=== PATIENT | male | born 1940 | race Caucasian/White ===

== ENCOUNTER 2016-06-09 18:59 | Inpatient (IN) | payer OTHER ==
[2016-06-09] MEDS ORDERED: PROPOFOL/EMULSION 500 MG/50 ML BOTTLE IV ONE (19:02)
[2016-06-09] MEDS ORDERED: NS 1,000 ML IV ONE ×2 (19:05→19:16)
--- NOTE | 2016-06-09 19:11 | EDPHY ---
H & P Stated Complaint: Cardiac arrest Time Seen by Provider: 06/09/16 19:05 HPI/ROS: CHIEF COMPLAINT: Cardiac arrest HISTORY OF PRESENT ILLNESS: Patient is brought in emergently by paramedics after a witnessed cardiac arrest. The patient is unable to provide history as he is currently intubated. The patient reportedly was at home with a home healthcare nurse when he was noted to have a witnessed arrest. The patient received immediate CPR and paramedics were summoned. They arrived after approximately 10 minutes of CPR. The patient was found to be in ventricular fibrillation. He was cardioverted and given epinephrine. He returned to a normal spontaneous rhythm with normal blood pressure following intervention. The patient was intubated by paramedics. Patient may have taken a oxycodone tablet for pain prior to this event. The patient did receive Narcan. REVIEW OF SYSTEMS: A comprehensive 10 point review of systems is otherwise negative aside from elements mentioned in the history of present illness. - Personal History Current Tetanus/Diphtheria Vaccine: Unsure Current Tetanus Diphtheria and Acellular Pertussis (TDAP): Unsure - Social History Smoking Status: Unknown if ever smoked Constitutional: Initial Vital Signs Heart Rate 46 L 06/09/16 19:01 Respiratory Rate 16 06/09/16 19:01 Blood Pressure 79/54 L 06/09/16 19:01 O2 Sat (%) 94 06/09/16 19:01 O2 Delivery Mode Bag Valve Mask Allergies/Adverse Reactions: gluten [Gluten] Allergy (Verified 09/02/10 15:17) Other-Enter Comments No Allergies [NKDA] Allergy (Verified 09/02/10 15:17) Medical Decision Making - Diagnostics Imaging Results: Imaging Impressions Chest X-Ray 06/09/16 19:02 Impression: 1. Satisfactory position of the endotracheal tube. 2. Suspect underlying fibrosis. 3. Postoperative changes of spinal instrumentation. Procedures: Procedure: Limited transthoracic echocardiogram. A limited transthoracic echocardiogram was performed and interpreted by myself for cardiac arrest. Limited transthoracic echocardiogram: The pericardium was visualized and found to be negative for pericardial fluid. Cardiac activity was present, no significantly dilated RV. The study was negative for pericardial effusion. The exam was performed by myself. ED Course/Re-evaluation: The patient arrives to the ED after a reported witnessed arrest. Initial rhythm was VFib which has responded to cardioversion epinephrine. The patient is currently in a sinus rhythm. The patient is intubated. A stat x-ray demonstrates good placement of the ET tube and findings consistent with congestive heart failure. The patient is breathing spontaneously. The patient has no purposeful movement. The patient's blood sugar was noted to be less than 20. He received an amp of D50. The patient was placed on a cafeteria monitor and defibrillator pads have been applied to the chest wall. Consultation was made with Dr. Hari Kay from Cardiology. The patient will be taken to the cardiac catheterization lab and admitted to the intensive care unit. The patient's has arrived at 7:30 p.m.. She reports he has recently undergone a spinal surgery approximately 1 month ago. He has been recovering uneventfully at home. The patient was up and ambulatory today. The patient reportedly was in bed sleeping and tried to get up prior to his arrest. The patient has no history of coronary artery disease. The patient had been taking some oxycodone over the past couple days for increasing back pain. The patient does not have a history of diabetes. Repeat FSBG = 96. Bedside cardiac echo shows no effusion, no dilated RV. The patient will be taken to the cardiac catheterization lab for further evaluation. Consultation is also made with Dr. Ansari from the hospitalist service. The patient will then be admitted to the intensive care unit. Critical Care Time: Critical care time exclusive of procedures and exclusive of the PA's time was 48 minutes, performed by myself, Aaron Hood MD. Patient presents to the ED a witnessed cardiac arrest. The patient will be taken immediately to the cardiac catheterization lab. The patient did undergo a comprehensive evaluation in the emergency department. He will be assessed by the hospitalist and threading machine tender following his angiogram. - Data Points Laboratory Results: 06/09/16 06/09/16 06/09/16 19:39 19:38 19:06 WBC RBC Hgb POC Hgb 9.5 gm/dL L gm/dL (14.5-17.3) Hct POC Hct 28 % L % (42.8-50.6) MCV MCH MCHC RDW Plt Count MPV Neut % (Auto) Lymph % (Auto) [place] % (Auto) Eos % (Auto) Baso % (Auto) Nucleat RBC Rel Count Absolute Neuts (auto) Absolute Lymphs (auto) Absolute Monos (auto) Absolute Eos (auto) Absolute Basos (auto) Absolute Nucleated RBC Immature Gran % Immature Gran # Puncture Site RIGHT RADIAL Patient Temperature 37.0 DEGREES DEGREES pCO2 30 mmHg L mmHg (34-38) pO2 213 mmHg H mmHg (65-75) Total CO2 21 mEq/L L mEq/L (23-27) ABG pH 7.43 (7.35-7.45) ABG PO2/FiO2 Ratio 2130 RATIO RATIO ABG O2 Saturation 99 % H % (92-95) ABG Base Excess -3.4 mEq/L L mEq/L (-2.5-2.5) O2 Concentration % 10 % % (0-100) Actual Respiration Rate 22 Set Respiration Rate 20 SIMV YES Tidal Volume 420 PEEP 5 Peak Inspir Pressure 16 Pressure Support 17 POC Sodium 143 mEq/L mEq/L (134-144) Sodium Pending POC Potassium 4.5 mEq/L mEq/L (3.3-5.0) Potassium Pending POC Chloride 103 mEq/L mEq/L (96-108) Chloride Pending Carbon Dioxide Pending Bicarbonate 20 mEq/L L mEq/L (22-26) Anion Gap Pending POC BUN 38 mg/dL H mg/dL (7-23) BUN Pending Creatinine Pending POC Creatinine 1.1 mg/dL mg/dL (0.8-1.5) Estimated GFR Pending Glucose Pending POC Glucose 96 mg/dL mg/dL (70-100) Calcium Pending Troponin I Pending 06/09/16 06/09/16 19:06 19:03 WBC Pending RBC Pending Hgb Pending POC Hgb 11.6 gm/dL L gm/dL (14.5-17.3) Hct Pending POC Hct 34 % L % (42.8-50.6) MCV Pending MCH Pending MCHC Pending RDW Pending Plt Count Pending MPV Pending Neut % (Auto) Pending Lymph % (Auto) Pending [place] % (Auto) Pending Eos % (Auto) Pending Baso % (Auto) Pending Nucleat RBC Rel Count Pending Absolute Neuts (auto) Pending Absolute Lymphs (auto) Pending Absolute Monos (auto) Pending Absolute Eos (auto) Pending Absolute Basos (auto) Pending Absolute Nucleated RBC Pending Immature Gran % Pending Immature Gran # Pending Puncture Site Patient Temperature pCO2 pO2 Total CO2 ABG pH ABG PO2/FiO2 Ratio ABG O2 Saturation ABG Base Excess O2 Concentration % Actual Respiration Rate Set Respiration Rate SIMV Tidal Volume PEEP Peak Inspir Pressure Pressure Support POC Sodium 141 mEq/L mEq/L (134-144) Sodium POC Potassium 4.8 mEq/L mEq/L (3.3-5.0) Potassium POC Chloride 103 mEq/L mEq/L (96-108) Chloride Carbon Dioxide Bicarbonate Anion Gap POC BUN 48 mg/dL H mg/dL (7-23) BUN Creatinine POC Creatinine 1.1 mg/dL mg/dL (0.8-1.5) Estimated GFR Glucose POC Glucose < 20 mg/dL L* mg/dL (70-100) Calcium Troponin I Medications Given: Discontinued Medications Dextrose (Dextrose 50% Syringe) 25 gm IVP EDNOW ONE Stop: 06/09/16 19:14 Last Admin: 06/09/16 19:15 Dose: 25 gm Sodium Chloride (Ns) 1,000 mls @ 0 mls/hr IV ONCE ONE PRN Reason: Wide Open Stop: 06/09/16 19:06 Last Admin: 06/09/16 19:15 Dose: 1,000 mls Sodium Chloride (Ns) 1,000 mls @ 0 mls/hr IV ONCE ONE PRN Reason: Wide Open Stop: 06/09/16 19:17 Last Admin: 06/09/16 19:16 Dose: 1,000 mls Propofol (Diprivan 10 Mg/Ml (Premix)) 50 mls @ 0 mls/hr IV EDNOW ONE; As Directed PRN Reason: Protocol Stop: 06/09/16 19:35 Last Admin: 06/09/16 19:35 Dose: 50 mls Point of Care Test Results: 06/09/16 06/09/16 19:03 19:38 POC Sodium 141 143 POC Potassium 4.8 4.5 POC Chloride 103 103 POC BUN 48 H 38 H POC Creatinine 1.1 1.1 POC Glucose < 20 L* 96 Departure - Departure Disposition: [facility] Inpatient Acute Clinical Impression: Cardiac arrest Condition: Critical Referrals: NONE *PRIMARY CARE P,. [Primary Care Provider] - As per Instructions
[2016-06-09] MEDS ORDERED: D50W 25 GM/50 ML SYR IVP ONE ×3 (19:12→22:08)
--- NOTE | 2016-06-09 19:12 | CPEKG ---
Heart Rate: 46 RR Interval: 1304 P-R Interval: 168 QRSD Interval: 104 QT Interval: 472 QTC Interval: 413 P Marion: 0 QRS Marion: 94 T Wave Marion: 25 EKG Severity - BORDERLINE ECG - EKG Impression: SINUS BRADYCARDIA EKG Impression: LOW VOLTAGE THROUGHOUT EKG Impression: BORDERLINE R WAVE PROGRESSION, ANTERIOR LEADS Electronically Signed By: Kaushik Flowers 11-Jun-2016 14:34:41
[2016-06-09 19:25] LABS: % IMMATURE GRANULYOCYTES 0.8 % (0.0-1.1); ABSOLUTE IMMATURE GRANULOCYTES 0.06 10^3/uL (0.00-0.10); ADD DIFF? NO; ADD MORPH? NO; ADD SCAN? YES; ATYPICAL LYMPHOCYTE FLAG 0 (0-99); FRAGMENT RBC FLAG 0 (0-99); LIPEMIA HEMOLYSIS FLAG 80 (0-99); MEAN CELL HEMOGLOBIN 29.1 pg (27.9-34.1); MEAN CELL HEMOGLOBIN CONCENTR. 32.4 g/dL (32.4-36.7); MEAN CELL VOLUME 89.9 fL (81.5-99.8); MEAN PLATELET VOLUME 9.7 fL (8.7-11.7); PLATELET CLUMPS FLAG 0 (0-99); PLATELET COUNT 220 10^3/uL (150-400); RED BLOOD CELL COUNT 3.78 10^6/uL (4.40-6.38); RED CELL DISTRIBUTION WIDTH 14.6 % (11.5-15.2)
[2016-06-09 19:34] LABS: LEFT SHIFT FLG 120 (0-99)
[2016-06-09] MEDS ORDERED: PROPOFOL/EMULSION 50 ML IV ONE (19:34)
[2016-06-09 19:38] LABS: ANION GAP 8 mEq/L (8-16); CALCIUM 7.4 mg/dL (8.5-10.4); CARBON DIOXIDE 24 mEq/l (22-31); CHLORIDE 105 mEq/L (97-110); CREATININE 0.9 mg/dL (0.7-1.3); GLOMERULAR FILTRATION RATE > 60; POTASSIUM 4.8 mEq/L (3.5-5.2); SODIUM 137 mEq/L (134-144)
[2016-06-09] MEDS ORDERED: LIDOCAINE 1% 30 ML SDV ONE (19:44)
[2016-06-09] MEDS ORDERED: IOPAMIDOL (ISOVUE-370) 150 ML BTL IV ONE (19:45)
[2016-06-09 19:50] LABS: BASE EXCESS -3.4 mEq/L (-2.5-2.5); BICARBONATE 20 mEq/L (22-26); MEASURED OXYGEN SATURATION 99 % (92-95); O2 CONCENTRATIION 10 % (0-100); P/F RATIO 2130 RATIO; PATIENT RATE 22; PCO2 30 mmHg (34-38); PO2 213 mmHg (65-75); TCO2 21 mEq/L (23-27)
[2016-06-09 19:50] LABS: TROPONIN I 0.426 ng/mL (0-0.034)
[2016-06-09 19:51] LABS: PIP 16; PRESSURE SUPPORT 17; SIMV YES
[2016-06-09 19:53] LABS: GLUCOSE < 20 mg/dL (70-100)
[2016-06-09 19:57] LABS: SCAN POSITIVE
[2016-06-09 20:04] LABS: PLATELET ESTIMATE ADEQUATE (ADEQ)
[2016-06-09 20:07] LABS: POLYCHROMASIA 1+
[2016-06-09] MEDS ORDERED: DOPamine/DEXTROSE/250 ML BAG IV ONE (20:12)
[2016-06-09] MEDS ORDERED: ONDANSETRON 4 MG/2 ML VIAL IVP PRN (21:31)
[2016-06-09] MEDS ORDERED: ACETAMINOPHEN 650 MG SUPP PR PRN (21:31)
[2016-06-09] MEDS ORDERED: PROTOCOL MAGNESIUM 1 DOSE IV PRN (21:37)
[2016-06-09] MEDS ORDERED: PROTOCOL CALCIUM 1 DOSE IV PRN (21:37)
[2016-06-09] MEDS ORDERED: PROTOCOL POTASSIUM 1 DOSE MISC PRN (21:37)
[2016-06-09] MEDS ORDERED: PROTOCOL K PHOSPHATE 1 DOSE IV PRN (21:37)
[2016-06-09] MEDS ORDERED: D5W NS 1,000 ML IV SCH (21:45)
[2016-06-09] MEDS ORDERED: PROPOFOL/EMULSION 1,000 MG/100 ML BOTTLE IV ONE (21:53)
[2016-06-09] MEDS ORDERED: NOREPINEPHRINE BITARTRATE 4 MG in D5W 500 ML IV SCH (22:00)
[2016-06-09] MEDS ORDERED: IOPAMIDOL (ISOVUE 370) 100 ML BTL IV ONE (22:04)
[2016-06-09 22:05] LABS: IONIZED CALCIUM 1.02 MMOL/L (1.12-1.30)
[2016-06-09] MEDS: D50W 25 GM/50 ML SYR IVP PRN (22:15)
[2016-06-09 22:18] LABS: INR 2.97 (0.83-1.16); PROTIME(PATIENT) 31.3 SEC (12.0-15.0)
[2016-06-09 22:19] LABS: APTT 38.5 SEC (23.0-38.0)
[2016-06-09] MEDS: NOREPINEPHRINE/NS 500 ML IV SCH (22:20)
[2016-06-09] MEDS: fentaNYL/NACL 100 ML IV SCH (22:20)
[2016-06-09 22:24] LABS: POTASSIUM 4.5 mEq/L (3.5-5.2)
[2016-06-09 22:27] LABS: MAGNESIUM 2.1 mg/dL (1.6-2.3)
--- NOTE | 2016-06-09 22:30 | CPIP ---
[f rep st] INVASIVE CARDIAC PROCEDURE DATE OF PROCEDURE: 06/09/2016 PROCEDURE: 1. Coronary angiography. 2. Left ventriculography. 3. Placement of catheter. INDICATION: Cardiac arrest followed by ventricular fibrillation with return to perfusing rhythm aft er direct current cardioversion and epinephrine. ACCESS: Patient was prepped and draped in sterile fashion. 1% lidocaine was used to anesthetize th e right inguinal region. A 6-Iranian introducer sheath was placed selectively into the right common femoral artery via modified Seldinger technique. CORONARY ANGIOGRAPHY: A 6-Iranian JL4 was advanced to left main coronary artery and images obtained. The left main coronary artery bifurcated into an LAD and circumflex coronary arteries. The left m ain coronary artery had a proximal 10% to 20% stenosis present. The left anterior descending esparza ry artery gave rise to 3 diagonal branches. The left anterior descending coronary artery had a sing le discrete 20% stenosis in the distal segment. The diagonal branches and the remainder of the left anterior descending coronary artery were free of any significant disease. The circumflex coronary a rtery is a moderate-sized vessel. The circumflex coronary artery is nondominant. The circumflex co ronary artery had an ostial 20% stenosis present. A 6-Iranian JR4 was advanced to the right coronary artery and images obtained. The right coronary artery was dominant. The right coronary artery appe ared normal. LEFT VENTRICULOGRAPHY: A 6-Iranian pigtail catheter was advanced in the left ventricle and images ob tained. Left ventricle is normal size and had normal systolic function. Estimated ejection fractio n of 60%. The inferior basilar segment appeared to be hypokinetic. COMPLICATIONS: None. CONCLUSIONS: 1. Mild coronary artery disease without flow limitation. 2. Normal left ventricular systolic function with inferobasilar hypokinesis. 3. Status post placement of catheter via right common femoral vein. /[id number]/MODL
[2016-06-09 22:37] LABS: PHENCYCLIDINE URINE BCH < 6 ng/ml (NEGATIVE); PHENCYCLIDINE URINE BCH NEGATIVE (NEGATIVE); TETRAHYDROCANNABINOL URINE < 5 ng/mL (NEGATIVE); TETRAHYDROCANNABINOL URINE NEGATIVE (NEGATIVE)
[2016-06-09] MEDS: D10W 1,000 ML IV SCH (22:37)
--- NOTE | 2016-06-09 22:41 | PDGENHP ---
History and Physical - Chief Complaint cardiac arrest - History of Present Illness 75 yo male with h/o chronic back pain who underwent spine surgery at [facility] one month ago with extensive rodding, presents to ED after an in-home cardiac arrest. Pt is intubated, sedated in the ICU and history is obtained from his , ED physician, Per Diem Interpreter, and chart review. He has historically been very active and healthy though his notes he's always prided himself on being "calorie deficient" and very thin. He underwent spine surgery last month and was recovering uneventfully at home since being discharged from rehab a week ago. He had been taking opiate pain medication, but no more than 1-2 per day according to his . Recently, he complained of increased hip and back pain. No noted fevers/chills, CP or SOB. He was apparently sleeping in bed prior to his arrest. His arrest was witnessed by his home health RN and CPR was started immediately. EMS was called and he received ~10 minutes of CPR prior to their arrival. Upon EMS arrival, he was found to be in V fib and received cardioversion and Epinephrine with ROSC. He did receive a dose of Narcan without notable effect. He was intubated and transported to the ED. Initial labs revealed a BG of <20 and he received 1 amp of D50 with repeat bg of 96. He was taken to the coreroom foundry laborer, where he was found to have non-flow limiting CAD. A HACA catheter was placed and HACA protocol was initiated. He is admitted to the ICU intubated and sedated. History Information - Allergies/Home Medication List Allergies/Adverse Reactions: gluten [Gluten] Allergy (Verified 09/02/10 15:17) Other-Enter Comments No Allergies [NKDA] Allergy (Verified 09/02/10 15:17) I have personally reviewed and updated: family history, medical history, social history, surgical history - Past Medical History Additional medical history: chronic back pain - Surgical History Additional surgical history: ORIF of left greater tuberosity fracture 2010, spine surgery with thomas rods 04/2016 - Family History Additional family history: unobtainable - Social History Smoking Status: Never smoked Alcohol Use: Occasionally 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 . Review of Systems ROS: 10pt was reviewed & negative except for what was stated in HPI & below ( ROS is unobtainable, pt intubated, sedated) Physical Exam Temp Pulse Resp BP Pulse Ox 35.0 C L 58 L 14 98/67 L 96 06/09/16 20:04 06/09/16 20:04 06/09/16 20:04 06/09/16 20:04 06/09/16 20:04 Constitutional: no apparent distress, chronically ill appearing, cachectic Eyes: other (pupils ~3 mm b/l, minimally reactive) Ears, Nose, Mouth, Throat: dry mucous membranes Cardiovascular: regular rate and rhythym Respiratory: no respiratory distress, bronchial breath sounds Gastrointestinal: normoactive bowel sounds, soft, non-tender abdomen Skin: other (cool) Neurologic: other (intermittent decerebrate posturing) Lab Data & Imaging Review 06/09/16 23:30 06/09/16 23:30 WBC 7.29 10^3/uL (3.80-9.50) 06/09/16 19:06 RBC 3.78 10^6/uL (4.40-6.38) L 06/09/16 19:06 Hgb 11.0 g/dL (13.7-17.5) L 06/09/16 19:06 POC Hgb 9.5 gm/dL (14.5-17.3) L 06/09/16 19:38 Hct 34.0 % (40.0-51.0) L 06/09/16 19:06 POC Hct 28 % (42.8-50.6) L 06/09/16 19:38 MCV 89.9 fL (81.5-99.8) 06/09/16 19:06 MCH 29.1 pg (27.9-34.1) 06/09/16 19:06 MCHC 32.4 g/dL (32.4-36.7) 06/09/16 19:06 RDW 14.6 % (11.5-15.2) 06/09/16 19:06 Plt Count 220 10^3/uL (150-400) 06/09/16 19:06 MPV 9.7 fL (8.7-11.7) 06/09/16 19:06 Neut % (Auto) 85.3 % (39.3-74.2) H 06/09/16 19:06 Lymph % (Auto) 7.4 % (15.0-45.0) L 06/09/16 19:06 [place] % (Auto) 6.4 % (4.5-13.0) 06/09/16 19:06 Eos % (Auto) 0.0 % (0.6-7.6) L 06/09/16 19:06 Baso % (Auto) 0.1 % (0.3-1.7) L 06/09/16 19:06 Nucleat RBC Rel Count 0.0 % (0.0-0.2) 06/09/16 19:06 Absolute Neuts (auto) 6.21 10^3/uL (1.70-6.50) 06/09/16 19:06 Absolute Lymphs (auto) 0.54 10^3/uL (1.00-3.00) L 06/09/16 19:06 Absolute Monos (auto) 0.47 10^3/uL (0.30-0.80) 06/09/16 19:06 Absolute Eos (auto) 0.00 10^3/uL (0.03-0.40) L 06/09/16 19:06 Absolute Basos (auto) 0.01 10^3/uL (0.02-0.10) L 06/09/16 19:06 Absolute Nucleated RBC 0.00 10^3/uL (0-0.01) 06/09/16 19:06 Immature Gran % 0.8 % (0.0-1.1) 06/09/16 19:06 Seg Neutrophils % 75 % 06/09/16 19:06 Band Neutrophils % 12 % 06/09/16 19:06 Lymphocytes % 8 % 06/09/16 19:06 Monocytes % 4 % 06/09/16 19:06 Metamyelocytes % 1 % 06/09/16 19:06 Immature Gran # 0.06 10^3/uL (0.00-0.10) 06/09/16 19:06 Absolute Seg Neuts 5.47 10^/uL (1.70-6.50) 06/09/16 19:06 Absolute Band Neuts 0.87 10^3/uL (0.00-0.70) H 06/09/16 19:06 Absolute Lymphocytes 0.58 10^3/uL (1.00-3.00) L 06/09/16 19:06 Absolute Monocytes 0.29 10^3/uL (0.30-0.80) L 06/09/16 19:06 Absolute Metamyelocyte 0.07 10^3/mL (0.00-0.00) H 06/09/16 19:06 Platelet Estimate ADEQUATE (ADEQ) 06/09/16 19:06 Polychromasia 1+ H 06/09/16 19:06 PT 31.3 SEC (12.0-15.0) H 06/09/16 21:52 INR 2.97 (0.83-1.16) H 06/09/16 21:52 APTT 38.5 SEC (23.0-38.0) H 06/09/16 21:52 Puncture Site RIGHT RADIAL 06/09/16 19:39 Patient Temperature 37.0 DEGREES 06/09/16 19:39 pCO2 30 mmHg (34-38) L 06/09/16 19:39 pO2 213 mmHg (65-75) H 06/09/16 19:39 Total CO2 21 mEq/L (23-27) L 06/09/16 19:39 ABG pH 7.43 (7.35-7.45) 06/09/16 19:39 ABG PO2/FiO2 Ratio 2130 RATIO 06/09/16 19:39 ABG O2 Saturation 99 % (92-95) H 06/09/16 19:39 ABG Base Excess -3.4 mEq/L (-2.5-2.5) L 06/09/16 19:39 ABG Lactic Acid 0.8 mmol/L (0.5-1.6) 06/09/16 21:52 O2 Concentration % 10 % (0-100) 06/09/16 19:39 Actual Respiration Rate 22 06/09/16 19:39 Set Respiration Rate 20 06/09/16 19:39 SIMV YES 06/09/16 19:39 Tidal Volume 420 06/09/16 19:39 PEEP 5 06/09/16 19:39 Peak Inspir Pressure 16 06/09/16 19:39 Pressure Support 17 06/09/16 19:39 POC Sodium 143 mEq/L (134-144) 06/09/16 19:38 Sodium 137 mEq/L (134-144) 06/09/16 19:06 POC Potassium 4.5 mEq/L (3.3-5.0) 06/09/16 19:38 Potassium 4.5 mEq/L (3.5-5.2) 06/09/16 21:52 POC Chloride 103 mEq/L (96-108) 06/09/16 19:38 Chloride 105 mEq/L (97-110) 06/09/16 19:06 Carbon Dioxide 24 mEq/l (22-31) 06/09/16 19:06 Bicarbonate 20 mEq/L (22-26) L 06/09/16 19:39 Anion Gap 8 mEq/L (8-16) 06/09/16 19:06 POC BUN 38 mg/dL (7-23) H 06/09/16 19:38 BUN 42 mg/dL (7-23) H 06/09/16 19:06 Creatinine 0.9 mg/dL (0.7-1.3) 06/09/16 19:06 POC Creatinine 1.1 mg/dL (0.8-1.5) 06/09/16 19:38 Estimated GFR > 60 06/09/16 19:06 Glucose < 20 mg/dL (70-100) L* 06/09/16 19:06 POC Glucose 96 mg/dL (70-100) 06/09/16 19:38 Calcium 7.4 mg/dL (8.5-10.4) L 06/09/16 19:06 Ionized Calcium 1.02 MMOL/L (1.12-1.30) L 06/09/16 21:52 Troponin I 0.426 ng/mL (0-0.034) H 06/09/16 19:06 Assessment & Plan Assessment: Cardiac arrest (Acute) - V fib arrest per EMS report. S/P DC cardioversion and Epi, now on HACA protocol. Angiogram showed non-flow limiting CAD, no obvious cardiac source for his arrest. It's possible his critical hypoglycemia was a factor (bg <20) vs respiratory arrest due to accidental opiate overdose (pt taking oxycodone for pain) vs PE vs CVA. CXR showed pulmonary fibrosis and hyperexpanded lung pastor. -Cont mechanical ventilation, follow abg's -Cont HACA protocol, Vecuronium drip started for shivering -Levophed, Dopamine as needed -CT head and chest CTA when stable -Start stress dose steroids -He did not respond to initial narcan dose and will defer further doses now that he is intubated and sedated -close attention to electrolytes -pulmonology consult in am Critical hypoglycemia - etiology unclear. Pt is not a diabetic, not on insulin , but per his , he prides himself on being calorie deficient. Repeat BG upon arrival to ICU from coreroom foundry laborer was again <20. His persistent, severe hypoglycemia is a poor prognostic sign in terms of neurologic function. -Repeat D50 amp x2, and prn -Start D10 drip -q1h bg's -stress dose steroids in the event this is caused by cortisol deficiency -check LFT's, r/o hepatic failure as etiology of hypoglycemia -check insulin, c-peptide, BHOB, and sulfonylurea screen Hypotension - may be related to hypothermia as seems to correlate with HACA cooling. No e/o infection without fever, leukocytosis and normal lactate. -pressors, steroids as above Elevated INR - he is not on oral anti-coagulants. -check LFT's DVT PPLX - Lovenox tomorrow assuming head CT neg for bleed Dispo - ICU Code status - I discussed code status with his , who is his MDPOA. She wishes for him to be DNR (no compressions or shock), though is ok with him remaining intubated for now. She understands his condition is critical and is open to discussing further goals of care. Greater than 75 minutes was spent providing critical care, coordinating with specialists and family.
[2016-06-09 22:43] LABS: CK-MB INTERPRETATION NEGATIVE (NEGATIVE)
[2016-06-09 23:43] LABS: ADD MORPH? NO; ADD SCAN? YES; ATYPICAL LYMPHOCYTE FLAG 0 (0-99); FRAGMENT RBC FLAG 0 (0-99); HEMATOCRIT 30.8 % (40.0-51.0); HEMOGLOBIN 10.4 g/dL (13.7-17.5); LIPEMIA HEMOLYSIS FLAG 90 (0-99); MEAN CELL HEMOGLOBIN 29.8 pg (27.9-34.1); MEAN CELL HEMOGLOBIN CONCENTR. 33.8 g/dL (32.4-36.7); MEAN CELL VOLUME 88.3 fL (81.5-99.8); MEAN PLATELET VOLUME 9.7 fL (8.7-11.7); PLATELET CLUMPS FLAG 0 (0-99); PLATELET COUNT 223 10^3/uL (150-400); RED BLOOD CELL COUNT 3.49 10^6/uL (4.40-6.38); RED CELL DISTRIBUTION WIDTH 14.4 % (11.5-15.2)
[2016-06-09] MEDS ORDERED: VECURONIUM BROMIDE 10 MG VIAL IV ONE (23:45)
[2016-06-09 23:47] LABS: LEFT SHIFT FLG 210 (0-99)
[2016-06-10 00:05] LABS: ALANINE AMINOTRANSFERASE 209 IU/L (21-72); ALBUMIN 2.2 g/dL (3.5-5.0); ALKALINE PHOSPHATASE 280 IU/L (38-126); ANION GAP 4 mEq/L (8-16); ASPARTATE AMINOTRANSFERASE 634 IU/L (17-59); BILIRUBIN,TOTAL 2.6 mg/dL (0.1-1.4); BILIRUBIN-CONJUGATED 0.5 mg/dL (0.0-0.5); BILIRUBIN-UNCONJUGATED 2.1 mg/dL (0.0-1.1); CALCIUM 6.3 mg/dL (8.5-10.4); CARBON DIOXIDE 25 mEq/l (22-31); CHLORIDE 109 mEq/L (97-110); CREATININE 0.9 mg/dL (0.7-1.3); GLOMERULAR FILTRATION RATE > 60; GLUCOSE 54 mg/dL (70-100); POTASSIUM 3.9 mEq/L (3.5-5.2); SODIUM 138 mEq/L (134-144); TOTAL PROTEIN 5.3 g/dL (6.3-8.2)
[2016-06-10] MEDS: PANTOPRAZOLE SODIUM 40 MG in NS 100 ML IV SCH ×2 (00:09→08:41)
[2016-06-10] MEDS: VECURONIUM BROMIDE 50 MG in D5W 50 ML IV SCH ×2 (00:09→16:08)
[2016-06-10] MEDS: NS 1,000 ML IV SCH ×3 (00:12→23:02)
[2016-06-10 00:15] LABS: ADD DIFF? YES; SCAN POSITIVE
[2016-06-10 00:21] VITALS: O2SAT 100
[2016-06-10 00:24] LABS: ECHINOCYTES 1+; KERATOCYTES 1+; PLATELET ESTIMATE ADEQUATE (ADEQ); POLYCHROMASIA 1+; TOXIC GRANULATION PRESENT; TOXIC VACUOLIZATION PRESENT
[2016-06-10] MEDS: D50W 25 GM/50 ML SYR IVP PRN (01:13)
[2016-06-10 01:31] LABS: BASE EXCESS -3.3 mEq/L (-2.5-2.5); BICARBONATE 23 mEq/L (22-26); MEASURED OXYGEN SATURATION 99 % (92-95); PCO2 41 mmHg (34-38); PO2 259 mmHg (65-75); TCO2 24 mEq/L (23-27)
[2016-06-10 01:33] LABS: O2 CONCENTRATIION 60 % (0-100); P/F RATIO 432 RATIO; PATIENT RATE 22; PRESSURE SUPPORT 10; SIMV YES
[2016-06-10 01:52] LABS: MAGNESIUM 1.9 mg/dL (1.6-2.3); POTASSIUM 3.1 mEq/L (3.5-5.2)
[2016-06-10] MEDS ORDERED: PROTOCOL MAGNESIUM 1 DOSE IV PRN (02:22)
[2016-06-10] MEDS ORDERED: PROTOCOL POTASSIUM 1 DOSE MISC PRN (02:22)
[2016-06-10 02:26] LABS: B-HYDROXYBUTYRATE 0.11 mmol/L (0.02-0.27)
[2016-06-10] MEDS: POTASSIUM Cl (KCl) 50 ML IV SCH ×4 (02:46→11:23)
[2016-06-10] MEDS: PROPOFOL/EMULSION 100 ML IV SCH ×2 (03:31→16:05)
[2016-06-10] MEDS: HYDROCORTISONE 100 MG/2 ML VIAL IVP SCH ×3 (06:17→23:02)
[2016-06-10 06:29] LABS: POTASSIUM 4.8 mEq/L (3.5-5.2)
[2016-06-10] MEDS: NOREPINEPHRINE/NS 500 ML IV SCH ×2 (08:14→12:38)
[2016-06-10] MEDS ORDERED: ENOXAPARIN 40 MG/0.4 ML SYR SC SCH (09:00)
[2016-06-10 09:48] LABS: BASE EXCESS -3.8 mEq/L (-2.5-2.5); BICARBONATE 21 mEq/L (22-26); IONIZED CALCIUM 1.06 MMOL/L (1.12-1.30); MEASURED OXYGEN SATURATION 99 % (92-95); PCO2 33 mmHg (34-38); PO2 171 mmHg (65-75); TCO2 22 mEq/L (23-27)
[2016-06-10 09:51] LABS: END TIDAL CO2 27
[2016-06-10 09:53] LABS: % IMMATURE GRANULYOCYTES 0.6 % (0.0-1.1); ABSOLUTE IMMATURE GRANULOCYTES 0.04 10^3/uL (0.00-0.10); ADD DIFF? NO; ADD MORPH? NO; ADD SCAN? YES; ATYPICAL LYMPHOCYTE FLAG 0 (0-99); FRAGMENT RBC FLAG 0 (0-99); HEMATOCRIT 30.6 % (40.0-51.0); HEMOGLOBIN 10.3 g/dL (13.7-17.5); LIPEMIA HEMOLYSIS FLAG 80 (0-99); MEAN CELL HEMOGLOBIN 29.7 pg (27.9-34.1); MEAN CELL HEMOGLOBIN CONCENTR. 33.7 g/dL (32.4-36.7); MEAN CELL VOLUME 88.2 fL (81.5-99.8); MEAN PLATELET VOLUME 9.7 fL (8.7-11.7); PLATELET CLUMPS FLAG 10 (0-99); PLATELET COUNT 198 10^3/uL (150-400); RED BLOOD CELL COUNT 3.47 10^6/uL (4.40-6.38); RED CELL DISTRIBUTION WIDTH 14.6 % (11.5-15.2)
[2016-06-10 09:58] LABS: LEFT SHIFT FLG 270 (0-99)
[2016-06-10] MEDS ORDERED: ALBUMIN 5% 500 ML IV ONE (09:59)
[2016-06-10 10:03] LABS: APTT 44.8 SEC (23.0-38.0); INR 3.03 (0.83-1.16); PROTIME(PATIENT) 31.8 SEC (12.0-15.0)
[2016-06-10 10:06] LABS: ALANINE AMINOTRANSFERASE 190 IU/L (21-72); ALKALINE PHOSPHATASE 241 IU/L (38-126); ANION GAP 5 mEq/L (8-16); ASPARTATE AMINOTRANSFERASE 424 IU/L (17-59); CALCIUM 6.4 mg/dL (8.5-10.4); CARBON DIOXIDE 24 mEq/l (22-31); CHLORIDE 110 mEq/L (97-110); CREATININE 0.6 mg/dL (0.7-1.3); GLOMERULAR FILTRATION RATE > 60; GLUCOSE 132 mg/dL (70-100); MAGNESIUM 1.8 mg/dL (1.6-2.3); SODIUM 139 mEq/L (134-144); TOTAL PROTEIN 4.8 g/dL (6.3-8.2)
[2016-06-10 10:09] LABS: BILIRUBIN,TOTAL 2.2 mg/dL (0.1-1.4)
[2016-06-10 10:36] LABS: CK-MB INTERPRETATION NEGATIVE (NEGATIVE)
[2016-06-10 10:49] LABS: BILIRUBIN-CONJUGATED 0.4 mg/dL (0.0-0.5); BILIRUBIN-UNCONJUGATED 1.8 mg/dL (0.0-1.1)
[2016-06-10 10:57] LABS: SCAN POSITIVE
[2016-06-10 11:06] LABS: ECHINOCYTES 1+; KERATOCYTES 1+; PLATELET ESTIMATE ADEQUATE (ADEQ); POLYCHROMASIA 1+
[2016-06-10 11:07] LABS: TOXIC GRANULATION PRESENT
--- NOTE | 2016-06-10 11:26 | PDCARCONS ---
Cardiology Consult Reason for Consult: Arrest Chief Complaint: Found down at home Requesting Physician: Critical care History of Present Illness: Patient is a 75 y/o male with history of CAD (by EBCT) and recent outpatient assessment of cardiovascular risk for lengthy pending back surgery, who was reportedly "found down" at home by home nursing. Given the findings, CPR was started and EMS was called. About 10 minutes of CPR were performed prior to arrival of EMS. Initial rhythm was ventricular fibrillation, and defibrillation was performed in the field with dose of EPI. Intubation for respiration support was also performed. Bedside echocardiogram without gross pathology noted - specifically, no overt pericardial effusion was noted. No comment on left ventricular systolic function was documented in the ER noted. Given the "cardiac arrest' with VF and defib in the field, the patient was taken urgently to the cardiac cath lab nurse by my partner, Dr. Taryn Kay. No critical CAD was noted and overall LVEF was noted to be within normal limits. HACA protocol was started given the situation and presentation. Unusual findings at the time of accelerated work up in the ER include elevated INR and severe hypoglycemia (with no etiology for either). ROS was not obtainable given the intubation and sedation of the patient. From the family's report, there were no outstanding issues other than pains to back from recent surgery being voiced. No complaints of chest pains or pressure. No PND or orthopnea. No dizziness or lightheadedness had been reported. Outpatient work up with [facility] (03-24-16 with recommendations for MPI given CAD and pending back surgery). Testing was performed on 04-07-16 without ischaemia or infarction patterns noted. Normal left ventricular systolic ejection fraction (68%) was noted. Follow up with [facility] post testing to review these results was performed on 04-13-16. and family were at bedside the patient today. History Information - Allergies/Home Medication List Allergies/Adverse Reactions: gluten [Gluten] Allergy (Verified 09/02/10 15:17) Other-Enter Comments No Allergies [NKDA] Allergy (Verified 09/02/10 15:17) Home Medications: Levothyroxine Sodium [Synthroid] 75 mcg PO DAILY06 06/10/16 [Last Taken Unknown] Liothyronine Sodium [Cytomel 5 mcg (*)] 5 mcg PO DAILY 06/10/16 [Last Taken Unknown] Teriparatide [Forteo] 20 mcg SQ DAILY 06/10/16 [Last Taken Unknown] I have personally reviewed and updated: family history, medical history, social history, surgical history - Past Medical History arthritis, coronary artery disease, degenerative disc disease - Surgical History Additional surgical history: recent lengthy back surgery - Family History Positive for: non-pertinent - Social History Smoking Status: Never smoked Alcohol Use: Occasionally Drug Use: None Cardiac History - Cardiac History Past Cardiac History: CAD Cardiac Risk Factors: age > 65, male JAME Risk Evaluation age greater or equal to 65: yes greater or equal to 3 CAD risk factors: no known CAD(stenosis greater or eqaul to 50%): no ASA use in past 7 days: no severe angina(greater or equal to 2 episodes in 24hrs): no EKG ST changes greater or equal to 0.5mm: no positive cardiac marker: yes Total Score: 2 JAME Score: 8.3% risk Physical Exam Temp Pulse Resp BP Pulse Ox 33.3 C L 56 L 18 100/66 100 06/10/16 11:00 06/10/16 11:00 06/10/16 11:00 06/10/16 11:00 06/10/16 11:00 FIO2 (%) 40 Ears, Nose, Mouth, Throat: moist mucous membranes Cardiovascular: regular rate and rhythym, edema, No JVD Peripheral Pulses: 1+: dorsalis-pedis (R), dorsalis-pedis (L) Respiratory: other (intubated) Gastrointestinal: other (hypoactive) Skin: mottled Musculoskeletal: other (paralyzed) Neurologic: other (sedated) Psychiatric: other (sedated) Lab and Imaging 06/10/16 09:34 06/10/16 09:34 WBC 6.24 10^3/uL (3.80-9.50) 06/10/16 09:34 RBC 3.47 10^6/uL (4.40-6.38) L 06/10/16 09:34 Hgb 10.3 g/dL (13.7-17.5) L 06/10/16 09:34 POC Hgb 9.5 gm/dL (14.5-17.3) L 06/09/16 19:38 Hct 30.6 % (40.0-51.0) L 06/10/16 09:34 POC Hct 28 % (42.8-50.6) L 06/09/16 19:38 MCV 88.2 fL (81.5-99.8) 06/10/16 09:34 MCH 29.7 pg (27.9-34.1) 06/10/16 09:34 MCHC 33.7 g/dL (32.4-36.7) 06/10/16 09:34 RDW 14.6 % (11.5-15.2) 06/10/16 09:34 Plt Count 198 10^3/uL (150-400) 06/10/16 09:34 MPV 9.7 fL (8.7-11.7) 06/10/16 09:34 Neut % (Auto) 85.5 % (39.3-74.2) H 06/10/16 09:34 Lymph % (Auto) 7.4 % (15.0-45.0) L 06/10/16 09:34 Reynolds % (Auto) 6.3 % (4.5-13.0) 06/10/16 09:34 Eos % (Auto) 0.0 % (0.6-7.6) L 06/10/16 09:34 Baso % (Auto) 0.2 % (0.3-1.7) L 06/10/16 09:34 Nucleat RBC Rel Count 0.0 % (0.0-0.2) 06/10/16 09:34 Absolute Neuts (auto) 5.34 10^3/uL (1.70-6.50) 06/10/16 09:34 Absolute Lymphs (auto) 0.46 10^3/uL (1.00-3.00) L 06/10/16 09:34 Absolute Monos (auto) 0.39 10^3/uL (0.30-0.80) 06/10/16 09:34 Absolute Eos (auto) 0.00 10^3/uL (0.03-0.40) L 06/10/16 09:34 Absolute Basos (auto) 0.01 10^3/uL (0.02-0.10) L 06/10/16 09:34 Absolute Nucleated RBC 0.00 10^3/uL (0-0.01) 06/10/16 09:34 Immature Gran % 0.6 % (0.0-1.1) 06/10/16 09:34 Seg Neutrophils % 44 % 06/10/16 09:34 Band Neutrophils % 45 % 06/10/16 09:34 Lymphocytes % 7 % 06/10/16 09:34 Monocytes % 4 % 06/10/16 09:34 Metamyelocytes % 1 % 06/09/16 19:06 Immature Gran # 0.04 10^3/uL (0.00-0.10) 06/10/16 09:34 Absolute Seg Neuts 2.75 10^/uL (1.70-6.50) 06/10/16 09:34 Absolute Band Neuts 2.81 10^3/uL (0.00-0.70) H 06/10/16 09:34 Absolute Lymphocytes 0.44 10^3/uL (1.00-3.00) L 06/10/16 09:34 Absolute Monocytes 0.25 10^3/uL (0.30-0.80) L 06/10/16 09:34 Absolute Metamyelocyte 0.07 10^3/mL (0.00-0.00) H 06/09/16 19:06 RBC/WBC/PLT Morphology SEE COMMENT (NORMAL) 06/10/16 09:34 Toxic Granulation PRESENT H 06/10/16 09:34 Toxic Vacuolation PRESENT H 06/09/16 23:30 Dohle Bodies PRESENT H 06/09/16 23:30 Platelet Estimate ADEQUATE (ADEQ) 06/10/16 09:34 Polychromasia 1+ H 06/10/16 09:34 Echinocytes 1+ H 06/10/16 09:34 Keratocytes 1+ H 06/10/16 09:34 PT 31.8 SEC (12.0-15.0) H 06/10/16 09:34 INR 3.03 (0.83-1.16) H 06/10/16 09:34 APTT 44.8 SEC (23.0-38.0) H 06/10/16 09:34 Puncture Site RIGHT FEMORAL 06/10/16 09:34 Patient Temperature 33.3 DEGREES 06/10/16 09:34 pCO2 33 mmHg (34-38) L 06/10/16 09:34 pO2 171 mmHg (65-75) H 06/10/16 09:34 Total CO2 22 mEq/L (23-27) L 06/10/16 09:34 ABG pH 7.39 (7.35-7.45) 06/10/16 09:34 ABG PO2/FiO2 Ratio 432 RATIO 06/09/16 23:30 ABG O2 Saturation 99 % (92-95) H 06/10/16 09:34 ABG Base Excess -3.8 mEq/L (-2.5-2.5) L 06/10/16 09:34 ABG Lactic Acid 1.4 mmol/L (0.5-1.6) D 06/10/16 09:34 VBG Lactic Acid Cancelled 06/09/16 21:52 O2 Concentration % 60 % (0-100) 06/09/16 23:30 Actual Respiration Rate 22 06/09/16 23:30 Set Respiration Rate 16 06/09/16 23:30 SIMV YES 06/09/16 23:30 Tidal Volume 425 06/09/16 23:30 End Tidal CO2 27 06/10/16 09:34 PEEP 5 06/09/16 23:30 Peak Inspir Pressure 16 06/09/16 19:39 Pressure Support 10 06/09/16 23:30 POC Sodium 143 mEq/L (134-144) 06/09/16 19:38 Sodium 139 mEq/L (134-144) 06/10/16 09:34 POC Potassium 4.5 mEq/L (3.3-5.0) 06/09/16 19:38 Potassium 3.0 mEq/L (3.5-5.2) L 06/10/16 09:34 POC Chloride 103 mEq/L (96-108) 06/09/16 19:38 Chloride 110 mEq/L (97-110) 06/10/16 09:34 Carbon Dioxide 24 mEq/l (22-31) 06/10/16 09:34 Bicarbonate 21 mEq/L (22-26) L 06/10/16 09:34 Anion Gap 5 mEq/L (8-16) L 06/10/16 09:34 POC BUN 38 mg/dL (7-23) H 06/09/16 19:38 BUN 32 mg/dL (7-23) H 06/10/16 09:34 Creatinine 0.6 mg/dL (0.7-1.3) L 06/10/16 09:34 POC Creatinine 1.1 mg/dL (0.8-1.5) 06/09/16 19:38 Estimated GFR > 60 06/10/16 09:34 Glucose 132 mg/dL (70-100) H 06/10/16 09:34 POC Glucose 140 mg/dL (70-100) H 06/10/16 06:15 Calcium 6.4 mg/dL (8.5-10.4) L 06/10/16 09:34 Ionized Calcium 1.06 MMOL/L (1.12-1.30) L 06/10/16 09:34 Phosphorus 3.2 mg/dL (2.5-4.5) D 06/10/16 09:34 Magnesium 1.8 mg/dL (1.6-2.3) 06/10/16 09:34 Total Bilirubin 2.2 mg/dL (0.1-1.4) H 06/10/16 09:34 Conjugated Bilirubin 0.4 mg/dL (0.0-0.5) 06/10/16 09:34 Unconjugated Bilirubin 1.8 mg/dL (0.0-1.1) H 06/10/16 09:34 AST 424 IU/L (17-59) H 06/10/16 09:34 ALT 190 IU/L (21-72) H 06/10/16 09:34 Alkaline Phosphatase 241 IU/L (38-126) H 06/10/16 09:34 Creatine Kinase 5961 IU/L (0-224) H 06/10/16 09:34 CK-MB (CK-2) Fraction 84.80 ng/mL (0-3.19) H 06/10/16 09:34 CK-MB (CK-2) % 1.4 % (0.0-4.0) 06/10/16 09:34 Creatine Kinase Interp NEGATIVE (NEGATIVE) 06/10/16 09:34 Troponin I 1.580 ng/mL (0-0.034) H 06/10/16 09:34 NT-Pro-B Natriuret Pep 2630 pg/mL (0-125) H 06/09/16 21:52 Total Protein 4.8 g/dL (6.3-8.2) L 06/10/16 09:34 Albumin 2.0 g/dL (3.5-5.0) L 06/10/16 09:34 Beta-Hydroxybutyrate 0.11 mmol/L (0.02-0.27) 06/10/16 01:20 Urine Opiates Screen NEGATIVE ng/mL (NEGATIVE) 06/09/16 21:45 Urine Barbiturates NEGATIVE ng/mL (NEGATIVE) 06/09/16 21:45 Ur Phencyclidine Scrn NEGATIVE ng/mL (NEGATIVE) 06/09/16 21:45 Ur Amphetamines Screen NEGATIVE ng/mL (NEGATIVE) 06/09/16 21:45 U Benzodiazepines Scrn NEGATIVE ng/mL (NEGATIVE) 06/09/16 21:45 Urine Cocaine Screen NEGATIVE ng/mL (NEGATIVE) 06/09/16 21:45 U Marijuana (THC) Screen NEGATIVE ng/mL (NEGATIVE) 06/09/16 21:45 Visualized and Interpreted Chest x-ray results: Yes Chest X-ray Interpretation: no infiltrate Visualized and Interpreted EKG results: Yes EKG additional interpertation: sinus bradycardia Telemetry: sinus rhythm Echocardiogram: bedside, limited ER echo without comment on LVEF, but lack of pericardial effusion was reported. We know from angiogram that LVEF was grossly normal A/P Assessment: Patient is a 75 y/o male with history of CAD by EBCT, a recent MPI without ischaemia or infarction patterns noted. Normal LVEF was noted with this study. Patient was "found down" at home by home nursing. Uncertain on the duration that the patient was down (documentation that is available suggests that everything occurred rather rapidly with CPR for about 10 minutes and EMS arrival with defibrillation after noting VF), but the patient's glucose was noted to be severely suppressed and there were other labs noted to be markedly abnormal. Ongoing HACA protocol given the patient's presentation. and family were present in the room today for ICU rounds. Plan: (1) Would complete the HACA protocol (2) Supplement electrolytes as pre protocol (3) Supportive measures at present Cardiology will follow this patient
--- NOTE | 2016-06-10 12:19 | WOCRNPDOC ---
WOCRN Advanced Assessment Note - Skin Integrity Problem, Advanced Assess Upper Medial Back Surgical Wound/Incision Dressing Type: Gauze Dressing Description: Clean/Dry, Intact Exudate Amount: Minimal Exudate Characteristic(s): Serosanguinous Integumentary Issue Intervention: Dressing Changed, Dressing Initialed & Dated Wound Bed Color: Yellow Wound Bed Constitution: Undermining (7-12 oclock 3 cm, 4-7 oclock 1 cm), Adhered Slough Wound Edges: Not Attached Site Measurement - Head-to-Toe Length X Width X Depth (cm): 2.3x1.2x0.6 Skin Integrity Problem Comment: Wound assessed with patient on right side. No hardware palpable nor visible. Flushed with ns and then carly promogran Ag+ placed into distal wound. Packed with 1/2 inch algidex ag packing. Covered with gauze and 1/2 ABD. Education with patient's daughter on plan and wound healing process. Neal RN in room for care. Wound care will round again Thursday 06/15. Patient may benefit from wound vac to area if it doesnt respond to other treatments. Bilateral Heel Site Measurement - Head-to-Toe Length X Width X Depth (cm): 3x3x0 Skin Integrity Problem Comment: Bilateral blanching purple hue on heels. Vasopresser related. Offload agressively at all times.
--- NOTE | 2016-06-10 14:29 | HOSPPROG ---
Hospitalist Progress Note Assessment/Plan: DIAGNOSES: -STATUS POST OUT OF HOSPITAL CARDIAC ARREST, UNCERTAIN ETIOLOGY -ANGIOGRAPHICALLY NORMAL CORONARY ARTERIES AND GOOD LV SYSTOLIC FUNCTION BY VENTRICULOGRAM -RECURRENT CRITICAL HYPOGLYCEMIA WITH RECURRENT UNDETECTABLE FINGERSTICK SUGAR LEVELS IN A NONDIABETIC -ACUTE ANOXIC HEPATIC INJURY -RHABDOMYOLYSIS -HYPOTENSION WHILE ON HACA PROTOCOL -CURRENTLY ON HACA PROTOCOL -MSSA BACTEREMIA / BOTTLES, MULTIPLE POSSIBLE SOURCES INCLUDING HIS OPEN SPINE INCISION AND MULTIPLE LINES -RECENT EXTENSIVE SPINE SURGERY IN LATE APRIL At this point the patient is on the cooling protocol, and neurologic assessment is not possible. We are having some issues with hypotension requiring high- dose pressor support but he appears to have normal cardiac rhythm and does not have failure or pulmonary edema. His liver enzymes are improving somewhat, his muscle enzymes slightly higher today than yesterday. 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 At this point according protocol scheduled to go through approximately 930 tonight. PLANS: -continue cooling protocol -continue current pressor support -continue mechanical ventilator support attendant respiratory care measures -antibiotics to cover for staph bacteremia -will check echocardiogram to ensure that his cardiac function has remained in good condition with the current hypotension -have discussed the case in detail at the bedside with the patient's family. At this time they are wishing to proceed with ongoing care, however if he takes any turn for the worse from a cardiac or other critical standpoint they may consider possibility of withdrawing supportive care. All other questions around these issues are answered. Patient seen on multidisciplinary rounds. 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: Sinus rhythm Exam: Sedated on mechanical ventilator, oral tracheal tube in good position and secured Cooling catheter secured and functioning appropriately temperature right now 33.2 Uriarte another vascular access catheters all appear in good position and condition Hands and feet cool in with distal cyanosis resps per ventilator lungs clear BSs heart regular abd soft nondistended, bowel sounds present limbs no edema iv site ok Culture data: 1 of 4 blood culture bottles with MSSA Laboratory data are all reviewed in detail Chest x-ray, single view done today in ICU, my personal interpretation review of image: Some subtle airspace densities in the mid lungs left and right, no effusions Objective: Vital Signs Temp Pulse Resp BP Pulse Ox 33.3 C L 56 L 16 108/72 100 06/10/16 14:00 06/10/16 14:00 06/10/16 14:00 06/10/16 14:00 06/10/16 14:00 Microbiology 06/09/16 23:45 Blood Panel (PCR) - Final Blood S.aureus Methicillin Suscept. Laboratory Results 06/10/16 09:34 06/09/16 06/10/16 06/11/16 06:59 06:59 06:59 Intake Total 3421.8 Output Total 3410 Balance 11.8 PT 31.8 SEC (12.0-15.0) H 06/10/16 09:34 INR 3.03 (0.83-1.16) H 06/10/16 09:34 ICD10 Worksheet Patient Problems: Problems Problem Status Onset Cardiac arrest Acute
[2016-06-10] MEDS ORDERED: PROTOCOL CALCIUM 1 DOSE IV PRN (14:34)
[2016-06-10] MEDS ORDERED: PROTOCOL K PHOSPHATE 1 DOSE IV PRN (14:34)
[2016-06-10 14:49] LABS: MAGNESIUM 1.8 mg/dL (1.6-2.3); POTASSIUM 4.2 mEq/L (3.5-5.2)
[2016-06-10] MEDS: D10W 1,000 ML IV SCH (15:51)
[2016-06-10] MEDS: NOREPINEPHRINE BITARTRATE 16 MG in D5W 250 ML IV SCH (16:54)
[2016-06-10] MEDS: NAFCILLIN SODIUM 2 GM in D5W 100 ML IV SCH ×2 (17:07→23:02)
--- NOTE | 2016-06-10 17:41 | GCON ---
[f rep st] CONSULTATION PULMONARY/CRITICAL CARE CONSULTATION. REASON FOR CONSULTATION: Status post [id number] cardiac arrest with ventricular fibrillation, on the HACA protocol. HISTORY: Patient is a 75-year-old gentleman with multiple medical issues, including a recent very large spine surgery 1 month ago at [facility]. He has been at home, recovering. Yesterday, when a visiting nurse was there, he arrested. CPR was started immediately. EMS responded within 10 minutes. He was found to be in ventricular fibrillation, was cardioverted and resuscitated with return of spontaneous circulation. He was intubated in the field. Initial laboratory showed a blood glucose of less than 20. He was given D50. In the emergency room, he was unresponsive. A CT scan of the head was unremarkable for acute pathology. CT scan of the chest showed no evidence of pulmonary embolic disease and some bronchiectasis. Small bilateral pleural effusions were present. Intralobular septal thickening was noted associated with his bronchiectasis, with possibly some scattered bulla? The heart size appeared normal. Patient was taken to the bolt labeler. Coronary arteries were clean. Ejection fraction was approximately 50%. A Thermogard catheter for cooling was placed. He was admitted to the intensive care unit and has been placed on the HACA protocol. In the intensive care unit, he has been hypotensive. He is on Levophed. He is making urine. He is being sedated and paralyzed. Neurologic status cannot be assessed. PAST MEDICAL HISTORY: Remarkable for his recent very extensive spinal surgery and rodding. He has an open wound at the bottom part of his incision. He has had significant weight loss associated with this recent surgery, but apparently was quite thin before. He has had ORIF on the left, and hypothyroidism, for which he takes replacement. HOME MEDICATIONS: Included Forteo, Cytomel, and Synthroid. SOCIAL HISTORY: Patient is , with a supportive family. Tobacco is negative, as is alcohol. 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 FAMILY HISTORY: Noncontributory. REVIEW OF SYSTEMS: Unobtainable. There is no known history of previous heart disease, thromboembolic disease, renal disease, lung disease, etc., per his family. There is no history of diabetes, hypoglycemia, or medication with insulin or oral diabetic agents. PHYSICAL EXAMINATION: GENERAL: A thin gentleman, who is paralyzed and sedated , on the ventilator. Blood pressure is approximately 100/65, with MAP of 80, on Levophed at 18. Saturations are 100% on the ventilator, on 40% FiO2. Respiratory rate is set at 16. He is actively being cooled. CVP is currently 14. End-tidal CO2 is 27. HEENT: Remarkable for small equal pupils, with scleral edema. Gaze is downward and somewhat to the right. Eye movements are not roving. An NG tube is in place to suction. Endotracheal tube is in place. CHEST: Clear anteriorly. Breath sounds are diminished at the bases. There are no significant rhonchi, few secretions. Heart tones are well heard. There is no obvious gallop. There is a systolic murmur. P2 appears normal. ABDOMEN : Soft. No masses are appreciated. It is scaphoid. Bowel sounds are significantly diminished. Few were present. A Uriarte catheter is in place. He is making urine, approximately 30 per hour. EXTREMITIES: Remarkable for decreased pulses and distal early cyanotic changes related to the fingers and toes. There is an open draining wound on the bottom part of his incision on the back. He has been seen by Wound Care. NEUROLOGIC: Status cannot be assessed. DATABASE: Initial radiologic studies are as outlined above. Chest x-ray today shows an NG tube in good position. Lines and tubes are in good position. There was some hazy perihilar densities bilaterally, no shaina infiltrates. CVP is in good position. LABORATORY: Arterial blood gas shows a pH of 7.39, pCO2 33, and pO2 of 171 on the ventilator, 40%. White blood cell count is 6200, hematocrit 30.6. Platelets are normal. INR is 3.03, PTT 44.8. Sodium is 139 with a potassium of 4.2. BUN is 32 with a creatinine is 0.6. Glucoses on D10 have been consistently in the 130 to 140 range. Bilirubin is 1.8 with an AST of 424 and ALT of 190. Total CPK is 5961. CK-MB is negative. Troponin is 1.58. Albumin is 2.0. Urine tox screen on admission was negative. Four out of four cultures are now growing a gram-positive cocci, consistent with MSSA. ASSESSMENT: 1. Status post [id number]-hidriuue cardiac arrest associated with bystander CPR and ventricular fibrillation, return of spontaneous circulation after epinephrine and cardioversion. Anoxic injury cannot be excluded. Organ injury likewise cannot be excluded and there appears to be early evidence of shock liver. Neurologic status cannot be assessed currently secondary to the HACA protocol. Prognosis currently is unknown. 2. Hypothermia after cardiac arrest. 3. Hypotension. He is requiring Levophed. CVP is appropriate: He was not volume depleted. 4. Hypoglycemia: Initial blood glucose was less than 20. He was given D50 and is now on a D10 drip with sugars controlled. His hypoglycemia may have contributed to his arrest. 5. Bacteremia. This is associated apparently with methicillin-susceptible Staphylococcus aureus by initial gram-positive identification. He has been started on nafcillin. It is possible that his methicillin-susceptible Staphylococcus aureus is coming from his surgical wound, resulted in sepsis and hypoglycemia, and his subsequent arrest. This is, of course, purely speculative. 6. Anemia. Probably chronic, related to recent surgeries. 7. Elevated liver function studies. Probably secondary to shock liver. 8. Advance directives. He is do not resuscitate per the wishes of his family. They would accept "easy" cardiac drugs and are making decisions regarding possible withdrawal of care based on his progress today, as well as neurologic outcome after rewarming. PLANS AND RECOMMENDATIONS: Patient will be kept in the intensive care unit on the HACA protocol. Intravenous fluids and intermittent colloid will be given to keep CVP approximately 14 and mean arterial pressures greater than 80, if possible. Levophed will be continued. Another pressor may need to be added. Laboratory, glucoses, CBC, renal function, ABG, and chest x-ray will all be followed. He will continue to be cooled per the HACA protocol until approximately 9 p.m. tonight. We do not know what his outcome will be at this point in time, and probably will not be able to assess this until at least 12 hours after he has been rewarmed. This will be sometime tomorrow morning. All the above was discussed with the patient's family at length. They are realistic and understand. One hour of critical care time was spent directly with the patient, with multiple visits and discussions today. /[id number]/MODL MTDD
[2016-06-10] MEDS ORDERED: NAFCILLIN SODIUM 2 GM in D5W 100 ML IV SCH (18:00)
[2016-06-10 18:19] LABS: MAGNESIUM 1.8 mg/dL (1.6-2.3); POTASSIUM 4.1 mEq/L (3.5-5.2)
[2016-06-10 21:49] LABS: ADD MORPH? NO; ADD SCAN? YES; ATYPICAL LYMPHOCYTE FLAG 70 (0-99); FRAGMENT RBC FLAG 0 (0-99); HEMATOCRIT 31.6 % (40.0-51.0); HEMOGLOBIN 10.6 g/dL (13.7-17.5); LIPEMIA HEMOLYSIS FLAG 80 (0-99); MEAN CELL HEMOGLOBIN 29.7 pg (27.9-34.1); MEAN CELL HEMOGLOBIN CONCENTR. 33.5 g/dL (32.4-36.7); MEAN CELL VOLUME 88.5 fL (81.5-99.8); MEAN PLATELET VOLUME 10.1 fL (8.7-11.7); PLATELET CLUMPS FLAG 10 (0-99); PLATELET COUNT 192 10^3/uL (150-400); RED BLOOD CELL COUNT 3.57 10^6/uL (4.40-6.38); RED CELL DISTRIBUTION WIDTH 14.6 % (11.5-15.2)
[2016-06-10 21:51] LABS: BASE EXCESS -4.9 mEq/L (-2.5-2.5); BICARBONATE 20 mEq/L (22-26); IONIZED CALCIUM 1.06 MMOL/L (1.12-1.30); MEASURED OXYGEN SATURATION 99 % (92-95); PCO2 39 mmHg (34-38); PO2 171 mmHg (65-75); TCO2 21 mEq/L (23-27)
[2016-06-10 22:06] LABS: LEFT SHIFT FLG 270 (0-99)
[2016-06-10 22:09] LABS: INR 3.04 (0.83-1.16); PROTIME(PATIENT) 31.9 SEC (12.0-15.0)
[2016-06-10 22:10] LABS: APTT 52.5 SEC (23.0-38.0)
[2016-06-10 22:13] LABS: MAGNESIUM 1.9 mg/dL (1.6-2.3)
[2016-06-10 22:45] LABS: ADD DIFF? YES; SCAN POSITIVE
[2016-06-10 22:53] LABS: ECHINOCYTES 3+; PLATELET ESTIMATE ADEQUATE (ADEQ); SCHISTOCYTES 1+
[2016-06-10 23:11] LABS: CK-MB INTERPRETATION NEGATIVE (NEGATIVE)
--- NOTE | 2016-06-10 23:30 | CPEKG ---
Heart Rate: 44 RR Interval: 1364 P-R Interval: 184 QRSD Interval: 80 QT Interval: 516 QTC Interval: 442 P [place]: 90 QRS [place]: 83 T Wave [place]: 159 EKG Severity - ABNORMAL ECG - EKG Impression: SINUS BRADYCARDIA EKG Impression: BORDERLINE RIGHT AXIS DEVIATION EKG Impression: CONSIDER ANTEROSEPTAL INFARCT EKG Impression: BORDERLINE T WAVE ABNORMALITIES Electronically Signed By: Doug Stock 11-Jun-2016 07:20:50
[2016-06-10 23:44] LABS: ALANINE AMINOTRANSFERASE 169 IU/L (21-72); ALBUMIN 2.3 g/dL (3.5-5.0); ALKALINE PHOSPHATASE 218 IU/L (38-126); ANION GAP 8 mEq/L (8-16); ASPARTATE AMINOTRANSFERASE 304 IU/L (17-59); BILIRUBIN,TOTAL 2.6 mg/dL (0.1-1.4); CALCIUM 6.8 mg/dL (8.5-10.4); CARBON DIOXIDE 21 mEq/l (22-31); CHLORIDE 109 mEq/L (97-110); CREATININE 0.6 mg/dL (0.7-1.3); GLOMERULAR FILTRATION RATE > 60; GLUCOSE 200 mg/dL (70-100); POTASSIUM 4.2 mEq/L (3.5-5.2); SODIUM 138 mEq/L (134-144); TOTAL PROTEIN 4.8 g/dL (6.3-8.2)
[2016-06-11] MEDS ORDERED: ALBUMIN 5% 500 ML IV ONE ×2 (00:25→09:28)
[2016-06-11] MEDS ORDERED: ALBUMIN 5% 500 ML BOTTLE IV ONE (00:27)
[2016-06-11] MEDS ORDERED: NS 1,000 ML IV SCH (00:30)
[2016-06-11] MEDS: NAFCILLIN SODIUM 2 GM in D5W 100 ML IV SCH ×6 (02:13→21:11)
[2016-06-11] MEDS: fentaNYL/NACL 100 ML IV SCH (02:16)
[2016-06-11 02:34] LABS: MAGNESIUM 1.9 mg/dL (1.6-2.3); POTASSIUM 4.2 mEq/L (3.5-5.2)
[2016-06-11] MEDS: NOREPINEPHRINE BITARTRATE 16 MG in D5W 250 ML IV SCH ×2 (03:17→16:04)
[2016-06-11 04:32] LABS: BILIRUBIN-CONJUGATED 0.9 mg/dL (0.0-0.5); BILIRUBIN-UNCONJUGATED 1.7 mg/dL (0.0-1.1)
[2016-06-11] MEDS: HYDROCORTISONE 100 MG/2 ML VIAL IVP SCH ×3 (05:12→21:11)
[2016-06-11 06:13] LABS: IONIZED CALCIUM 1.07 MMOL/L (1.12-1.30)
[2016-06-11 07:22] LABS: MAGNESIUM 1.9 mg/dL (1.6-2.3); POTASSIUM 4.5 mEq/L (3.5-5.2)
[2016-06-11] MEDS: PANTOPRAZOLE SODIUM 40 MG in NS 100 ML IV SCH (08:00)
[2016-06-11 09:24] LABS: BASE EXCESS -5.1 mEq/L (-2.5-2.5); BICARBONATE 20 mEq/L (22-26); IONIZED CALCIUM 0.99 MMOL/L (1.12-1.30); MEASURED OXYGEN SATURATION 99 % (92-95); PCO2 38 mmHg (34-38); PO2 142 mmHg (65-75); TCO2 21 mEq/L (23-27)
[2016-06-11 09:30] LABS: % IMMATURE GRANULYOCYTES 0.5 % (0.0-1.1); ABSOLUTE IMMATURE GRANULOCYTES 0.03 10^3/uL (0.00-0.10); ADD DIFF? NO; ADD MORPH? NO; ADD SCAN? YES; ATYPICAL LYMPHOCYTE FLAG 60 (0-99); FRAGMENT RBC FLAG 0 (0-99); HEMOGLOBIN 10.8 g/dL (13.7-17.5); LIPEMIA HEMOLYSIS FLAG 80 (0-99); MEAN CELL HEMOGLOBIN 29.4 pg (27.9-34.1); MEAN CELL HEMOGLOBIN CONCENTR. 32.7 g/dL (32.4-36.7); MEAN CELL VOLUME 89.9 fL (81.5-99.8); MEAN PLATELET VOLUME 10.3 fL (8.7-11.7); PLATELET CLUMPS FLAG 10 (0-99); PLATELET COUNT 166 10^3/uL (150-400); RED BLOOD CELL COUNT 3.67 10^6/uL (4.40-6.38); RED CELL DISTRIBUTION WIDTH 14.8 % (11.5-15.2)
[2016-06-11 09:44] LABS: LEFT SHIFT FLG 300 (0-99)
[2016-06-11 09:50] LABS: MAGNESIUM 1.8 mg/dL (1.6-2.3); POTASSIUM 4.5 mEq/L (3.5-5.2)
[2016-06-11 10:04] LABS: INR 2.69 (0.83-1.16); PROTIME(PATIENT) 28.9 SEC (12.0-15.0)
[2016-06-11 10:05] LABS: APTT 51.6 SEC (23.0-38.0)
[2016-06-11 10:39] LABS: SCAN POSITIVE
[2016-06-11 10:55] LABS: ECHINOCYTES 2+; PLATELET ESTIMATE ADEQUATE (ADEQ)
[2016-06-11 10:57] LABS: ALANINE AMINOTRANSFERASE 150 IU/L (21-72); ALBUMIN 2.5 g/dL (3.5-5.0); ALKALINE PHOSPHATASE 191 IU/L (38-126); ANION GAP 8 mEq/L (8-16); ASPARTATE AMINOTRANSFERASE 239 IU/L (17-59); BILIRUBIN,TOTAL 2.9 mg/dL (0.1-1.4); CALCIUM 6.9 mg/dL (8.5-10.4); CARBON DIOXIDE 21 mEq/l (22-31); CHLORIDE 109 mEq/L (97-110); CREATININE 0.7 mg/dL (0.7-1.3); GLOMERULAR FILTRATION RATE > 60; GLUCOSE 158 mg/dL (70-100); POTASSIUM 4.5 mEq/L (3.5-5.2); SODIUM 138 mEq/L (134-144); TOTAL PROTEIN 5.1 g/dL (6.3-8.2)
[2016-06-11 11:25] LABS: BILIRUBIN-CONJUGATED 1.3 mg/dL (0.0-0.5); BILIRUBIN-UNCONJUGATED 1.6 mg/dL (0.0-1.1)
[2016-06-11 14:20] LABS: CALCIUM 6.8 mg/dL (8.5-10.4); MAGNESIUM 1.9 mg/dL (1.6-2.3); POTASSIUM 4.6 mEq/L (3.5-5.2)
--- NOTE | 2016-06-11 15:05 | PDCARPN ---
Cardiology Progress Note Chief Complaint: Patient continues to run through HACA protocol Assessment/Plan: Assessment: 06-11-16 Patient continues to run through the HACA protocol. Patient in the rewarming phase. Urine output was on the lower side earlier in the day, but the last hour there has been an increase. Blood pressures continue to be soft (<100 mm Hg systolic). Family was present this afternoon. No arrhythmias have been noted on telemetry. 06-10-16 Patient is a 75 y/o male with history of CAD (by EBCT) and recent outpatient assessment of cardiovascular risk for lengthy pending back surgery, who was reportedly "found down" at home by home nursing. Given the findings, CPR was started and EMS was called. About 10 minutes of CPR were performed prior to arrival of EMS. Initial rhythm was ventricular fibrillation, and defibrillation was performed in the field with dose of EPI. Intubation for respiration support was also performed. Bedside echocardiogram without gross pathology noted - specifically, no overt pericardial effusion was noted. No comment on left ventricular systolic function was documented in the ER noted. Given the "cardiac arrest' with VF and defib in the field, the patient was taken urgently to the cardiac quality assurance qa lab analyst by my partner, Dr. Taryn Kay. No critical CAD was noted and overall LVEF was noted to be within normal limits. HACA protocol was started given the situation and presentation. Unusual findings at the time of accelerated work up in the ER include elevated INR and severe hypoglycemia (with no etiology for either). ROS was not obtainable given the intubation and sedation of the patient. From the family's report, there were no outstanding issues other than pains to back from recent surgery being voiced. No complaints of chest pains or pressure. No PND or orthopnea. No dizziness or lightheadedness had been reported. Outpatient work up with [facility] (03-24-16 with recommendations for MPI given CAD and pending back surgery). Testing was performed on 04-07-16 without ischaemia or infarction patterns noted. Normal left ventricular systolic ejection fraction (68%) was noted. Follow up with [facility] post testing to review these results was performed on 04-13-16. Plan: (1) Would complete the rewarm and begin taper on sedation and paralytics (2) Will continue to follow this patient (3) Neuro assessment as sedation and paralytics are removed (4) As sedation is weaned, further assessment of ventilatory function to be determined. Subjective: Sedated and vented Reviewed/Discussed With: multidisciplinary team Time Spent With Patient: 20 minutes Objective: Vital Signs (8 Hrs) Temp Pulse Resp BP Pulse Ox 06/11/16 14:00 36.0 C 75 16 101/60 100 06/11/16 13:00 35.7 C L 64 16 89/53 L 100 06/11/16 12:20 35.5 C L 63 16 84/49 L 100 06/11/16 11:00 35.2 C L 72 16 108/66 100 06/11/16 10:00 35 C L 65 16 100/62 100 06/11/16 09:49 34.7 C L 62 16 95/58 L 100 06/11/16 08:00 34.1 C L 57 L 16 94/59 L 100 Intake/Output (24 Hrs) 06/10/16 06/11/16 06/12/16 05:59 05:59 05:59 Intake Total 1999 6241.8 Output Total 2810 1860 25 Balance -810 4381.8 -25 Intake: IV Intake (ml) 798 IV Infused (ml) 1999 5443.8 Albumin 5% 500 ml @ As 500 Directed IV ONCE ONE Rx#: [id number] D10w 1,000 ml @ 50 mls/hr 1219 IV CONT WOOD Rx#: [id number] Norepinephrine Bitartrate 210 16 mg In D5w 250 ml @ Per Protocol IV CONT WOOD Rx#:[id number] Norepinephrine/Ns 500 ml 1558 @ Per Protocol IV CONT WOOD Rx#:[id number] Ns 1,000 ml @ 100 mls/hr 1757 IV CONT WOOD Rx#: [id number] Propofol/Emulsion 100 ml 78.3 @ Titrate IV CONT WOOD Rx# :[id number] Vecuronium [place] 50 mg 42.5 In D5w 50 ml @ As Directed IV CONT WOOD Rx#: [id number] fentaNYL/NACL 100 ml @ As 79 Directed IV CONT WOOD Rx# :[id number] Output: Urine (ml) 2810 1860 25 Catheter 2250 1860 25 Other: Weight 48.8 kg 50.8 kg 51.7 kg Number of Stools Catheter 1 Result Diagrams: 06/10/16 21:30 06/11/16 13:46 Cardiac Labs: Cardiac Lab Results (72 Hrs) 06/10/16 06/10/16 06/09/16 21:30 09:34 21:52 CK-MB (CK-2) Fraction 77.00 H 84.80 H 59.40 H Troponin I 1.100 H 1.580 H Telemetry: normal sinus rhythm - Physical Exam Constitutional: other (sedated) Eyes: PERRL Ears, Nose, Mouth, Throat: moist mucous membranes Cardiovascular: regular rate and rhythm, no murmurs, no rubs, no gallops Peripheral Pulses: 2+: dorsalis-pedis (R), dorsalis-pedis (L) Respiratory: clear to auscultate bilat, no crackles, no wheezes Gastrointestinal: other (hypoactive) Skin: no edema Psychiatric: other (sedated) ICD10 Worksheet Patient Problems: Problems Problem Status Onset Cardiac arrest Acute
[2016-06-11 15:18] LABS: C-PEPTIDE 0.3 ng/mL (1.1 - 4.4)
[2016-06-11 15:58] LABS: IONIZED CALCIUM 1.05 MMOL/L (1.12-1.30)
[2016-06-11] MEDS ORDERED: CALCIUM GLUCONATE 50 ML IV ONE ×2 (16:07→22:09)
[2016-06-11] MEDS: ENOXAPARIN 40 MG/0.4 ML SYR SC SCH (17:16)
--- NOTE | 2016-06-11 17:29 | PDINTPN ---
Recycling Center Operator Progress Note Assessment/Plan: Assessment: Status post out of hospital cardiac arrest Status post HACA protocol. Now Re warmed, off protocol Unresponsive -no change thus far. Prognosis remains guarded but it is too early to tell regarding his neurologic outcome. Hypoglycemia: Resolved. Off D10 with glucose is consistently a above 100. Hypotension: Remains on Levophed. CVP appropriate at 12. Elevated liver function studies: Secondary to shock liver. MSSA bacteremia. On nafcillin. Source may be the wound related to his incision on his back. If neurologic status returns then further evaluation will be needed Recent extensive back surgery and rodding Advanced directives: Do not resuscitate per the wishes of his family. Plan: Continue care. Continue ventilatory support. Follow neurologic status, x-ray, blood gas, laboratory. Continue Levophed as needed to maintain mean arterial pressures 65 or greater at this point. Avoid sedatives and pain medications as possible. Continue antibiotics. Maintain CVP approximately 12 well on the ventilator. All the above was discussed with the patient's family, RT, hospitalist, nursing and the ICU multi disciplinary team. Subjective: Unresponsive. Re warmed throughout the day. Objective: Vital Signs Temp Pulse Resp BP Pulse Ox 36.6 C 82 16 98/57 L 100 06/11/16 16:00 06/11/16 16:00 06/11/16 16:00 06/11/16 16:00 06/11/16 16:00 Microbiology 06/09/16 23:45 Blood Panel (PCR) - Final Blood S.aureus Methicillin Suscept. Laboratory Results 06/11/16 13:46 06/10/16 06/11/16 06/12/16 05:59 05:59 05:59 Intake Total 1999 6241.8 Output Total 2810 1860 25 Balance -810 4381.8 -25 PT 28.9 SEC (12.0-15.0) H 06/11/16 09:16 INR 2.69 (0.83-1.16) H 06/11/16 09:16 Laboratory Tests 06/11/16 06/11/16 06/11/16 06:05 06:05 09:16 PT INR APTT pCO2 38 pO2 142 H ABG pH 7.33 L ABG O2 Saturation 99 H Sodium 138 Potassium 4.5 Chloride 109 Carbon Dioxide 21 L Anion Gap 8 BUN 36 H Creatinine 0.7 Glucose 158 H Calcium 6.9 L Ionized Calcium 1.07 L Total Bilirubin 2.9 H AST 239 H ALT 150 H Albumin 2.5 L 06/11/16 09:16 PT 28.9 H INR 2.69 H APTT 51.6 H pCO2 pO2 ABG pH ABG O2 Saturation Sodium Potassium Chloride Carbon Dioxide Anion Gap BUN Creatinine Glucose Calcium Ionized Calcium Total Bilirubin AST ALT Albumin CXR: No significant infiltrates. Lines and tubes in appropriate position Physical Exam - Physical Exam General Appearance: no apparent distress, unresponsive, thin EENT: PERRL/EOMI, ET tube, other (NG to suction), No anisocoria (Downward gaze slightly to the right) Neck: normal inspection (CVP 12) Respiratory: lungs clear (Anteriorly), decreased breath sounds (At bases), rales (Few), No rhonchi, No wheezing Cardiac/Chest: regular rate, rhythm Abdomen: soft, No normal bowel sounds (Decreased, few present) Male Genitalia: other (Uriarte catheter in place. Input significantly greater than output) Skin: warm/dry, pallor Extremities: pedal edema (Trace +) Neuro/Psych: cognition abnormalities (Cannot assess yet), No no motor/sensory deficits (Cannot assess yet) ICD10 Worksheet Patient Problems: Problems Problem Status Onset Cardiac arrest Acute
[2016-06-11] MEDS ORDERED: D5W NS 1,000 ML IV PRN (18:39)
--- NOTE | 2016-06-11 19:11 | HOSPPROG ---
Hospitalist Progress Note Assessment/Plan: DIAGNOSES: -STATUS POST OUT OF HOSPITAL CARDIAC ARREST, UNCERTAIN ETIOLOGY -ANGIOGRAPHICALLY NORMAL CORONARY ARTERIES AND GOOD LV SYSTOLIC FUNCTION BY VENTRICULOGRAM -RECURRENT CRITICAL HYPOGLYCEMIA WITH RECURRENT UNDETECTABLE FINGERSTICK SUGAR LEVELS IN A NONDIABETIC -ACUTE ANOXIC HEPATIC INJURY -RHABDOMYOLYSIS -HYPOTENSION WHILE ON HACA PROTOCOL -CURRENTLY ON HACA PROTOCOL -MSSA BACTEREMIA / BOTTLES, MULTIPLE POSSIBLE SOURCES INCLUDING HIS OPEN SPINE INCISION AND MULTIPLE LINES -RECENT EXTENSIVE SPINE SURGERY IN LATE APRIL Still going thru rewarming stages so not really able to begin neruologic assessment. PLANS: -continue cooling protocol -continue current pressor support -continue mechanical ventilator support attendant respiratory care measures -antibiotics to cover for staph bacteremia -will check echocardiogram to ensure that his cardiac function has remained in good condition with the current hypotension -have discussed the case in detail at the bedside with the patient's family. At this time they are wishing to proceed with ongoing care, however if he takes any turn for the worse from a cardiac or other critical standpoint they may consider possibility of withdrawing supportive care. All other questions around these issues are answered. Patient seen on multidisciplinary rounds. I have reviewed the case in detail today with Dr Contreras SUBJECTIVE: Patient on mechanical ventilator sedated so no symptom assessment available Overall slow to rewarm, no acute events during night Still requiring some pressor support OBJECTIVE Vitals reviewed: Blood pressure at the moment is okay but he is on very high dose norepinephrine pressor support; vitals otherwise stable without fever Marketing Information Analyst, my review: Sinus rhythm Exam: Sedated on mechanical ventilator, oral tracheal tube in good position and secured Uriarte another vascular access catheters all appear in good position and condition Hands and feet still with some distal cyanosis resps per ventilator lungs clear BSs heart regular abd soft nondistended, bowel sounds present limbs no edema iv site ok Culture data: 4 of 4 blood initial culture bottles with MSSA Repeat blood cultures from yesterday also growing staph Laboratory data are all reviewed in detail Objective: Vital Signs Temp Pulse Resp BP Pulse Ox 37.1 C 91 16 108/62 100 06/11/16 17:00 06/11/16 17:00 06/11/16 17:00 06/11/16 17:00 06/11/16 17:00 Microbiology 06/09/16 23:45 Blood Panel (PCR) - Final Blood S.aureus Methicillin Suscept. Laboratory Results 06/11/16 09:16 06/11/16 13:46 06/10/16 06/11/16 06/12/16 06:59 06:59 06:59 Intake Total 3421.8 4820 Output Total 3410 1285 Balance 11.8 3535 PT 28.9 SEC (12.0-15.0) H 06/11/16 09:16 INR 2.69 (0.83-1.16) H 06/11/16 09:16 - Time Spent With Patient Time Spent with Patient: greater than 35 minutes Time Spent with Patient: Greater than 35 minutes spent on this patients care, greater than 50% of time spent counseling, educating, and coordinating care regarding the above mentioned plan. ICD10 Worksheet Patient Problems: Problems Problem Status Onset Cardiac arrest Acute
[2016-06-11 21:56] LABS: BASE EXCESS -5.1 mEq/L (-2.5-2.5); BICARBONATE 19 mEq/L (22-26); IONIZED CALCIUM 1.05 MMOL/L (1.12-1.30); MEASURED OXYGEN SATURATION 98 % (92-95); PCO2 34 mmHg (34-38); PO2 117 mmHg (65-75); SIMV YES; TCO2 20 mEq/L (23-27)
[2016-06-11 21:57] LABS: ADD MORPH? NO; ADD SCAN? YES; ATYPICAL LYMPHOCYTE FLAG 60 (0-99); END TIDAL CO2 30; FRAGMENT RBC FLAG 0 (0-99); HEMATOCRIT 34.4 % (40.0-51.0); HEMOGLOBIN 11.5 g/dL (13.7-17.5); LIPEMIA HEMOLYSIS FLAG 80 (0-99); MEAN CELL HEMOGLOBIN 29.9 pg (27.9-34.1); MEAN CELL HEMOGLOBIN CONCENTR. 33.4 g/dL (32.4-36.7); MEAN CELL VOLUME 89.6 fL (81.5-99.8); MEAN PLATELET VOLUME 10.3 fL (8.7-11.7); O2 CONCENTRATIION 40 % (0-100); P/F RATIO 293 RATIO; PATIENT RATE 18; PLATELET CLUMPS FLAG 30 (0-99); PLATELET COUNT 169 10^3/uL (150-400); PRESSURE SUPPORT 10; RED BLOOD CELL COUNT 3.84 10^6/uL (4.40-6.38); RED CELL DISTRIBUTION WIDTH 14.8 % (11.5-15.2)
[2016-06-11 22:02] LABS: LEFT SHIFT FLG 300 (0-99)
[2016-06-11 22:09] LABS: INR 2.54 (0.83-1.16); PROTIME(PATIENT) 27.6 SEC (12.0-15.0)
[2016-06-11 22:10] LABS: APTT 57.1 SEC (23.0-38.0)
[2016-06-11 22:12] LABS: MAGNESIUM 2.1 mg/dL (1.6-2.3); POTASSIUM 4.4 mEq/L (3.5-5.2)
[2016-06-11 22:38] LABS: ADD DIFF? YES; SCAN POSITIVE
[2016-06-11 22:45] LABS: ECHINOCYTES 1+; PLATELET ESTIMATE ADEQUATE (ADEQ)
[2016-06-12] MEDS ORDERED: NS BOLUS 500 ML (Wide open) IV ONE (02:30)
[2016-06-12] MEDS: NAFCILLIN SODIUM 2 GM in D5W 100 ML IV SCH ×3 (02:36→10:25)
[2016-06-12] MEDS: NOREPINEPHRINE BITARTRATE 16 MG in D5W 250 ML IV SCH (03:18)
[2016-06-12 04:14] LABS: BASE EXCESS -5.3 mEq/L (-2.5-2.5); BICARBONATE 18 mEq/L (22-26); IONIZED CALCIUM 1.06 MMOL/L (1.12-1.30); MEASURED OXYGEN SATURATION 98 % (92-95); PCO2 29 mmHg (34-38); PO2 104 mmHg (65-75); TCO2 19 mEq/L (23-27)
[2016-06-12 04:17] LABS: ADD MORPH? NO; ATYPICAL LYMPHOCYTE FLAG 30 (0-99); END TIDAL CO2 24; FRAGMENT RBC FLAG 0 (0-99); HEMATOCRIT 34.9 % (40.0-51.0); HEMOGLOBIN 11.6 g/dL (13.7-17.5); LIPEMIA HEMOLYSIS FLAG 80 (0-99); MEAN CELL HEMOGLOBIN 29.8 pg (27.9-34.1); MEAN CELL HEMOGLOBIN CONCENTR. 33.2 g/dL (32.4-36.7); MEAN CELL VOLUME 89.7 fL (81.5-99.8); MEAN PLATELET VOLUME 10.5 fL (8.7-11.7); O2 CONCENTRATIION 40 % (0-100); P/F RATIO 260 RATIO; PLATELET CLUMPS FLAG 10 (0-99); PLATELET COUNT 158 10^3/uL (150-400); RED BLOOD CELL COUNT 3.89 10^6/uL (4.40-6.38); RED CELL DISTRIBUTION WIDTH 14.7 % (11.5-15.2); SIMV YES
[2016-06-12 04:19] LABS: PATIENT RATE 18; PRESSURE SUPPORT 10
[2016-06-12 04:26] LABS: LEFT SHIFT FLG 300 (0-99)
[2016-06-12 04:27] LABS: ADD DIFF? YES; ADD SCAN? NO
[2016-06-12 04:29] LABS: APTT 52.4 SEC (23.0-38.0); INR 2.41 (0.83-1.16); PROTIME(PATIENT) 26.5 SEC (12.0-15.0)
[2016-06-12 04:30] LABS: ALANINE AMINOTRANSFERASE 142 IU/L (21-72); ALBUMIN 2.5 g/dL (3.5-5.0); ALKALINE PHOSPHATASE 153 IU/L (38-126); ANION GAP 9 mEq/L (8-16); ASPARTATE AMINOTRANSFERASE 183 IU/L (17-59); BILIRUBIN,TOTAL 3.4 mg/dL (0.1-1.4); CARBON DIOXIDE 19 mEq/l (22-31); CHLORIDE 113 mEq/L (97-110); CREATININE 1.1 mg/dL (0.7-1.3); GLOMERULAR FILTRATION RATE > 60; GLUCOSE 79 mg/dL (70-100); MAGNESIUM 2.2 mg/dL (1.6-2.3); POTASSIUM 4.2 mEq/L (3.5-5.2); SODIUM 141 mEq/L (134-144)
[2016-06-12 04:43] LABS: BILIRUBIN-UNCONJUGATED 1.4 mg/dL (0.0-1.1)
[2016-06-12] MEDS ORDERED: CALCIUM GLUCONATE 50 ML IV ONE ×2 (04:54→07:55)
[2016-06-12] MEDS: HYDROCORTISONE 100 MG/2 ML VIAL IVP SCH (05:09)
[2016-06-12 06:03] LABS: ECHINOCYTES 1+; PLATELET ESTIMATE ADEQUATE (ADEQ)
[2016-06-12] MEDS: D50W 25 GM/50 ML SYR IVP PRN (06:29)
--- NOTE | 2016-06-12 08:48 | CPEKG ---
Heart Rate: 108 RR Interval: 556 P-R Interval: 103 QRSD Interval: 164 QT Interval: 400 QTC Interval: 536 P Douglas: 0 QRS Douglas: 43 T Wave Douglas: 245 EKG Severity - ABNORMAL ECG - EKG Impression: SINUS TACHYCARDIA EKG Impression: NONSPECIFIC INTRAVENTRICULAR CONDUCTION DELAY EKG Impression: MINIMAL ST DEPRESSION, DIFFUSE LEADS Electronically Signed By: Kaushik Flowers 14-Jun-2016 00:01:14
[2016-06-12] MEDS: ENOXAPARIN 40 MG/0.4 ML SYR SC SCH (09:06)
[2016-06-12] MEDS: PANTOPRAZOLE SODIUM 40 MG in NS 100 ML IV SCH (09:06)
[2016-06-12] MEDS ORDERED: NS 500 ML IV ONE (09:44)
--- NOTE | 2016-06-12 11:03 | HOSPPROG ---
Hospitalist Progress Note Assessment/Plan: DIAGNOSES: -STATUS POST OUT OF HOSPITAL CARDIAC ARREST, UNCERTAIN ETIOLOGY -ANGIOGRAPHICALLY NORMAL CORONARY ARTERIES AND GOOD LV SYSTOLIC FUNCTION BY VENTRICULOGRAM -RECURRENT CRITICAL HYPOGLYCEMIA WITH RECURRENT UNDETECTABLE FINGERSTICK SUGAR LEVELS IN A NONDIABETIC -ACUTE ANOXIC HEPATIC INJURY -RHABDOMYOLYSIS -HYPOTENSION WHILE ON HACA PROTOCOL -CURRENTLY ON HACA PROTOCOL -MSSA BACTEREMIA 02/10 BOTTLES, MULTIPLE POSSIBLE SOURCES INCLUDING HIS OPEN SPINE INCISION AND MULTIPLE LINES -RECENT EXTENSIVE SPINE SURGERY IN LATE APRIL Patient seen on multidisciplinary rounds. I have reviewed the case in detail today with Dr Contreras PLANS: His prognosis is quite limited for meaningful recovery neurologically Will discuss with family with Dr Contreras today SUBJECTIVE: Patient on mechanical ventilator sedated so no symptom assessment available No acute events No sedation since Propofol turned off late yest afternoon Did not tolerate a 15 minute trial of cpap OBJECTIVE Vitals reviewed: Blood pressure still requiring high dose norepinephrine pressor support; vitals otherwise stable without fever Legislative Assistant, my review: Sinus rhythm Exam: on mechanical ventilator, oral tracheal tube in good position and secured; He is not breathing over the vent; when I turn rate down he has few spontaneous efforts pupils respond to light roving eye movements present no other spontaneous movement, no response to noxious stimuli Uriarte another vascular access catheters all appear in good position and condition Hands and feet still less cyanotic but remain cool lungs clear BSs heart regular abd soft nondistended, bowel sounds present limbs no edema iv site ok Culture data: all blood culture bottle from 06/09 and 06/10 with staph aureus Laboratory data are all reviewed in detail Objective: Vital Signs Temp Pulse Resp BP Pulse Ox 36.0 C 116 H 22 H 105/70 100 06/12/16 08:25 06/12/16 08:25 06/12/16 08:25 06/12/16 08:25 06/12/16 08:25 Microbiology 06/09/16 23:55 Blood Culture - Final Blood Staphylococcus Aureus 06/09/16 23:45 Blood Culture - Final Blood Staphylococcus Aureus Blood Panel (PCR) - Final S.aureus Methicillin Suscept. 06/10/16 11:22 Blood Culture - Final Blood Staphylococcus Aureus 06/10/16 09:34 Blood Culture - Final Blood Staphylococcus Aureus Laboratory Results 06/12/16 04:00 06/12/16 04:00 06/11/16 06/12/16 06/13/16 06:59 06:59 06:59 Intake Total 4820 3479.1 Output Total 1285 895 Balance 3535 2584.1 PT 26.5 SEC (12.0-15.0) H 06/12/16 04:00 INR 2.41 (0.83-1.16) H 06/12/16 04:00 ICD10 Worksheet Patient Problems: Problems Problem Status Onset Cardiac arrest Acute
[2016-06-12 11:15] VITALS: RESP 17
[2016-06-12 11:16] VITALS: BP 75/46; PULSE 87; TEMP 97
--- NOTE | 2016-06-12 12:00 | PDINTPN ---
Professor Of Criminal Justice Progress Note Assessment/Plan: Assessment: Seen and examined. He remains unresponsive, grimaces weakly to noxious stimulation and withdraws extremities. Will not open eyes, follow commands. No evidence of cognitive function. Pupils now on equal with roving eye movements. Neurologic prognosis is poor. He is now been Re warmed for almost 48 hours. He is still requiring Levophed to maintain blood pressure at 20. The patient's wishes to stop supportive care at this point. She would like patient extubated, all medicines to be discontinued, and to allow natural . I agree with this decision. Will change to comfort measures only, stop all medications, and extubate to low-flow oxygen. The withdrawal of care process, issues, and comfort care medications were discussed. I would expect that the patient may pass away fairly rapidly, perhaps in a matter hours, but cannot accurately predict this. The family understands this. Status post out of hospital cardiac arrest Status post HACA protocol. Now Re warmed, off protocol Unresponsive -no change thus far. Prognosis remains guarded but it is too early to tell regarding his neurologic outcome. Hypoglycemia: Resolved. Off D10 with glucose is consistently a above 100. Hypotension: Remains on Levophed. CVP appropriate at 12. Elevated liver function studies: Secondary to shock liver. MSSA bacteremia. On nafcillin. Source may be the wound related to his incision on his back. If neurologic status returns then further evaluation will be needed Recent extensive back surgery and rodding Advanced directives: Do not resuscitate per the wishes of his family. Plan: Extubate to comfort care. All the above was discussed with the patient's , family, RT, nursing and the ICU multi disciplinary team. 40 minutes of critical care time spent directly with the patient and his family. Objective: Vital Signs Temp Pulse Resp BP Pulse Ox 36.1 C 87 17 75/46 L 100 06/12/16 11:00 06/12/16 11:00 06/12/16 11:00 06/12/16 11:00 06/12/16 11:00 Microbiology 06/09/16 23:55 Blood Culture - Final Blood Staphylococcus Aureus 06/09/16 23:45 Blood Culture - Final Blood Staphylococcus Aureus Blood Panel (PCR) - Final S.aureus Methicillin Suscept. 06/10/16 11:22 Blood Culture - Final Blood Staphylococcus Aureus 06/10/16 09:34 Blood Culture - Final Blood Staphylococcus Aureus Laboratory Results 06/12/16 04:00 06/12/16 04:00 06/11/16 06/12/16 06/13/16 05:59 05:59 05:59 Intake Total 6241.8 3479.1 Output Total 1860 860 60 Balance 4381.8 2619.1 -60 PT 26.5 SEC (12.0-15.0) H 06/12/16 04:00 INR 2.41 (0.83-1.16) H 06/12/16 04:00 ICD10 Worksheet Patient Problems: Problems Problem Status Onset Cardiac arrest Acute
--- NOTE | 2016-06-12 12:14 | PDCARPN ---
Cardiology Progress Note Assessment/Plan: entered in error 06/12/16 16:59 entered in error Objective: Vital Signs (8 Hrs) Temp Pulse Resp BP Pulse Ox 06/12/16 08:25 36.0 C 116 H 22 H 105/70 100 06/12/16 08:00 36.1 C 114 H 18 102/71 100 06/12/16 07:00 36.0 C 113 H 15 94/64 L 100 06/12/16 06:00 36.3 C 116 H 16 98/68 L 100 06/12/16 05:00 36.2 C 111 H 16 88/62 L 100 06/12/16 04:40 109 H 26 H 100 06/12/16 04:30 112 H 75/52 L 06/12/16 04:00 36.2 C 109 H 17 86/60 L 100 Intake/Output (24 Hrs) 06/11/16 06/12/16 06/13/16 05:59 05:59 05:59 Intake Total 6241.8 3479.1 Output Total 1860 860 60 Balance 4381.8 2619.1 -60 Intake: IV Intake (ml) 798 500 IV Infused (ml) 5443.8 2979.1 Albumin 5% 500 ml @ As 500 Directed IV ONCE ONE Rx#: [id number] D10w 1,000 ml @ 50 mls/hr 1219 IV CONT WOOD Rx#: [id number] D5w Ns 1,000 ml @ 125 mls 1046 /hr IV CONT PRN Rx#: [id number] Norepinephrine Bitartrate 210 243.1 16 mg In D5w 250 ml @ Per Protocol IV CONT WOOD Rx#:[id number] Norepinephrine/Ns 500 ml 1558 @ Per Protocol IV CONT WOOD Rx#:[id number] Ns 1,000 ml @ 100 mls/hr 1757 1690 IV CONT WOOD Rx#: [id number] Propofol/Emulsion 100 ml 78.3 @ Titrate IV CONT WOOD Rx# :[id number] Vecuronium [place] 50 mg 42.5 In D5w 50 ml @ As Directed IV CONT WOOD Rx#: [id number] fentaNYL/NACL 100 ml @ As 79 Directed IV CONT WOOD Rx# :[id number] Output: Urine (ml) 1860 860 60 Catheter 1860 860 60 Other: Weight 50.8 kg 53.9 kg Number of Stools Catheter 1 1 Result Diagrams: 06/12/16 04:00 06/12/16 04:00 Cardiac Labs: Cardiac Lab Results (72 Hrs) 06/10/16 06/10/16 06/09/16 21:30 09:34 21:52 CK-MB (CK-2) Fraction 77.00 H 84.80 H 59.40 H Troponin I 1.100 H 1.580 H EK/5: SR with LBBB ICD10 Worksheet Patient Problems: Problems Problem Status Onset Cardiac arrest Acute
[2016-06-12] MEDS: LORazepam 2 MG/ML INJ IVP PRN ×2 (12:22→21:45)
[2016-06-13] MEDS: LORazepam 2 MG/ML INJ IVP PRN (00:46)
--- NOTE | 2016-06-13 20:58 | PDDCSUM ---
Discharge Summary Discharge Summary: DISCHARGE DIANGOSES: -STATUS POST OUT OF HOSPITAL CARDIAC ARREST, UNCERTAIN ETIOLOGY -ANGIOGRAPHICALLY NORMAL CORONARY ARTERIES AND GOOD LV SYSTOLIC FUNCTION BY VENTRICULOGRAM -RECURRENT CRITICAL HYPOGLYCEMIA WITH RECURRENT UNDETECTABLE FINGERSTICK SUGAR LEVELS IN A NONDIABETIC -ACUTE ANOXIC HEPATIC INJURY -RHABDOMYOLYSIS -HYPOTENSION WHILE ON HACA PROTOCOL -ACUTE SEPSIS WITH STAPH AUREUS BACTEREMIA -RECENT EXTENSIVE SPINE SURGERY IN LATE APRIL PROCEDURES: INTUBATION, MECHANICAL VENTILATION HACA PROTOCOL AND REWARMING CORONARY ANGIOGRAPHY AND LEFT VENTRICULOGRAPHY CONSULTATION: DR BOWMAN OF CRITICAL CARE MEDICINE [facility] MEDICINE SERVICE HOSPITAL COURSE: This patient suffered an out of hospital cardiac arrest, found on his floor by a visiting nurse who called 911 and performed cpr. He had sinus rythym during his stay here. He was found with undetectable glucose levels, and these recurred here again after initial glucose therapy. He was treated with HACA protocol. He was also found to develope sepsis and fevers with all blood culture bottles growing staph aureus. The source of infection was presumed to be a small open area in his insicion line persisting after a recent spine surgery. The cause of his hypoglycemia was uncertain. He is not diabetic and does not have any hypoglycemic meds. C Peptide was not elevated (was low). Sulfonylurea level was pending. The cause of his cardiac arrest is unknown. He had v fib at the scene at home that was successfully treated with shock therapy by paramedics. He had good LV function on vgram and no significant coronary stenosis on angiogram. It is hypothesized he could have seized from either hypoglycemia or sepsis. Upon cooling after HACA, he had removal of sedation but did not have return of significant brain function. The famiily requested removal of support, and he early on 06/13/16, just after 1:00 am.. 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
[2016-06-14 18:07] LABS: MISCELLANEOUS TEST See Comments
== END 2016-06-13 02:20 | disposition expired | DRG 872 ==
LOC: EDUNIT# → F2N 21:24
PROVIDERS: ADMIT Internal Medicine Cardiovascular Disease; ATTEND Hospitalist
PROC: 06HM33Z Insertion of Infusion Device into Right Femoral Vein, Percutaneous Approach (ICD-10-PCS; principal; 2016-06-09)
PROC: B2151ZZ Fluoroscopy of Left Heart using Low Osmolar Contrast (ICD-10-PCS; principal; 2016-06-09)
PROC: 4A023N7 Measurement of Cardiac Sampling and Pressure, Left Heart, Percutaneous Approach (ICD-10-PCS; principal; 2016-06-09)
PROC: B2111ZZ Fluoroscopy of Multiple Coronary Arteries using Low Osmolar Contrast (ICD-10-PCS; principal; 2016-06-09)
PROC: 5A1945Z Respiratory Ventilation, 24-96 Consecutive Hours (ICD-10-PCS; 2016-06-09)
DX: A41.01 Sepsis due to Methicillin susceptible Staphylococcus aureus (principal); G93.1 Anoxic brain damage, not elsewhere classified; M62.82 Rhabdomyolysis; S36.118A Other injury of liver, initial encounter; G89.29 Other chronic pain; I49.01 Ventricular fibrillation; E16.2 Hypoglycemia, unspecified; I95.9 Hypotension, unspecified; D64.9 Anemia, unspecified; E03.9 Hypothyroidism, unspecified; Z66 Do not resuscitate; Z51.5 Encounter for palliative care
CPT/HCPCS: 80307; 82947-QW; 83525-90; 83527-90; 84681-90; 96374; G0480; J0610; J1265; J1644; J1650; J2060; J2704; J3010; P9041; Q9967